=== PATIENT | male | born 1940 | race Caucasian/White ===

== ENCOUNTER → 2016-07-30 | Outpatient (CLI) | payer OTHER ==
--- NOTE | 2016-08-02 11:57 | CT ---
CT Scan of the Abdomen and Pelvis (Without IV Contrast) Clinical Indications: Follow-up infrarenal abdominal aortic aneurysm repair. COMPARISON: March 01, 2016. His initial preprocedure scan is July 2013. Technique: No intravenous contrast was given. Multidetector helical CT imaging is performed from th e diaphragm to the symphysis pubis. Dose reduction techniques were utilized. Intravenous contrast was not given because of renal insufficiency that is chronic. His prior scans are also done without cont rast. Dose reduction measures were utilized. Findings: At the top of L4, the lobular appearance of the aneurysm sac currently measures 5.9 x 5.9 cm, decreased from previous 6.3 x 6.5 cm when measured at the same level. Sac calcification is seen. The aneurysm extends down to the right common iliac artery, at this point largest measuring 4.3 x 4.4 cm, decreased from the previous 4.7 x 4.2 cm. There is some remodeling of the shape taking place. [place] th of these findings indirectly suggest lack of endoleak, despite lack of intravenous contrast with t hese studies. Location of the top of the stent-graft is unchanged, at the juxtarenal region. There is no evidence f or limb kink. Noncontrasted evaluation of the rest of the abdomen and pelvis is stable. Patient has sigmoid diverti culosis, known. Lung bases are clear. Again noted is bladder wall thickening with mild surrounding inflammation. Patient has small amount o f gallstones. IMPRESSION: 1. Interval decrease in size of the infrarenal and left iliac aneurysm, indirectly indicating lack of endoleak that is significant. 2. No stent-graft migration. 3. Cholelithiasis and sigmoid diverticulosis. 4. Otherwise no change in noncontrasted evaluation of the abdomen and pelvis. Attention: This examination does not use radiographic contrast, and as such, provides only a limite d evaluation of the abdomen, pelvis, and retroperitoneum. If there is further clinical suspicion for pathological conditions, a complete CT evaluation of the abdomen and pelvis utilizing intravenous, o ral, and rectal contrast should be considered.
== END ==
LOC: FIMAGING 13:57
PROVIDERS: ATTEND Radiology Diagnostic Radiology
DX: Z09 Encounter for follow-up examination after completed treatment for conditions other than malignant neoplasm (principal); I71.4 Abdominal aortic aneurysm, without rupture; K80.20 Calculus of gallbladder without cholecystitis without obstruction

== ENCOUNTER → 2016-10-09 | Outpatient (CLI) | payer OTHER | LOC: FIMAGING 13:22 | PROVIDERS: ATTEND Internal Medicine Nephrology | DX: N18.3 Chronic kidney disease, stage 3 (moderate) (principal); N28.1 Cyst of kidney, acquired ==

== ENCOUNTER 2017-01-03 07:39 | Emergency (ER) | payer OTHER ==
--- NOTE | 2017-01-03 07:56 | EDPHY ---
H & P Stated Complaint: High blood pressure at home and frequent urination -Stage 3 kidney failure HPI/ROS: CHIEF COMPLAINT: Polyuria, high blood pressure HISTORY OF PRESENT ILLNESS: The patient is a 76 y/o male with multiple comorbidities arriving with his complaining of polyuria and high blood pressure. He has a history that includes chronic kidney disease, urosepsis, BPH , CAD, and hypertension. He began feeling "woozy" last night and felt like he was unable to empty his bladder and has nearly constant urgency. He states this does not feel like prior UTIs. He has mild discomfort with palpation over his bladder when it is full. He denies fever, nausea, vomiting, diarrhea, chest pain , dyspnea, headache, syncope, abdominal pain. His states his blood pressure has been trending in the 150/100 range for the last month and they are working with his doctor to manage his Carvedilol. He normally takes 1/2 tablet 6.25mg BID. REVIEW OF SYSTEMS: Constitutional: No fever, no chills Eyes: No visual changes ENT: No sore throat Respiratory: No cough, no shortness of breath Cardiac: No chest pain Gastrointestinal: No nausea, no vomiting, no abdominal pain Genitourinary: see HPI Musculoskeletal: No leg pain or swelling Skin: No rash Neurological: No headache, no numbness, no weakness Psychiatric: No depression - Personal History Current Tetanus Diphtheria and Acellular Pertussis (TDAP): Yes Tetanus Vaccine Date: 2011 - Medical/Surgical History PMH: PMH includes: 1. Severe urosepsis 2. Acute on chronic hypoxic respiratory failure 3. Chronic kidney disease with baseline creatinine 1.8-2 4. Chronic heart failure 5. AAA status post stenting 6. 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 Chronic back pain with continuous narcotic dependency 8. COPD 9. Hypertension 10. Dyslipidemia 11. Paroxysmal atrial fibrillation in the setting of CABG 12. CAD status post CABG x4 in 2013 13. BPH 14. Pulmonary embolism Feb 2016 Prior medical records reviewed including admission 03/09/16 for chest pain and PE. Hx Asthma: No Hx Chronic Respiratory Disease: Yes Hx Diabetes: No Hx Cardiac Disease: Yes Hx Renal Disease: Yes Hx Cirrhosis: No Hx Alcoholism: No Hx HIV/AIDS: No Hx Splenectomy or Spleen Trauma: No Other PMH: CAD, CABG 4 vessel, [place] (1978), HTN, PVD, AAA (descending, repaired), COPD, BPH, renal stricture;CRI, dyslipidemia;Lt hip repl thrombocytopenia, anemia, arthritis, L hip surgery - Social History Smoking Status: Former smoker Additional Social History: Former smoker. 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 - Physical Exam Exam: General Appearance: Alert, appears fatigued, no distress Eyes: Pupils equal and round, no conjunctival pallor or injection ENT, Mouth: Mucous membranes moist Neck: Normal inspection Respiratory: Lungs are clear to auscultation Cardiovascular: Regular rate and rhythm Gastrointestinal: Abdomen is soft and non- tender Neurological: A&O, nonfocal, normal gait Skin: Warm and dry, no rash Extremities: Nontender Psychiatric: Mood and affect normal Constitutional: Initial Vital Signs Temperature (C) 36.6 C 01/03/17 07:40 Heart Rate 83 01/03/17 07:40 Respiratory Rate 20 01/03/17 07:40 Blood Pressure 143/92 H 01/03/17 07:40 O2 Sat (%) 91 L 01/03/17 07:40 O2 Delivery Mode Nasal Cannula O2 (L/minute) 5 Allergies/Adverse Reactions: lorazepam Allergy (Severe, Verified 03/09/16 17:03) Other-Enter Comments coffee Allergy (Uncoded 03/09/16 17:03) pt doesnt like garlic Allergy (Uncoded 03/09/16 17:03) pt doesnt like green peppers Allergy (Uncoded 03/09/16 17:03) pt doesnt like onions Allergy (Uncoded 03/09/16 17:03) red peppers Allergy (Uncoded 03/09/16 17:03) Home Medications: Medication Instructions Recorded Acetaminophen/ASA/Caffeine 1 each PO QID PRN 04/20/13 [Excedrin Tablet (*)] Atorvastatin Calcium [Lipitor 40 40 mg PO HS 04/20/13 mg (*)] Cyanocobalamin [Vitamin B12 (*)] 1,000 mcg PO HS 07/09/13 Cabergoline [Dostinex (*)] 0.25 mg PO SUWE@21 10/09/15 Carvedilol [Coreg (*)] 6.25 mg PO BIDMEAL 10/09/15 oxyCODONE CR [Oxycontin] 10 mg PO Q8@00,08,16 10/09/15 Aspirin [Aspirin 81mg (*)] 81 mg PO DAILY 02/27/16 Cholecalciferol Vit D3 [Vitamin D3 2,000 units PO DAILY 02/27/16 2000 units tab (OTC)] Diclofenac Sodium 1% [Voltaren Gel 1 pauly TP BID 02/27/16 (*)] oxyCODONE IR [Oxycodone Ir (*)] 15 mg PO Q8@04,12,20 02/27/16 Acetaminophen [Tylenol 325mg (*)] 650 mg PO Q6 PRN 03/09/16 Ciprofloxacin [Cipro] 500 mg PO BID 03/09/16 Furosemide [Lasix 40 MG (*)] 40 mg PO BIDDIUR 03/09/16 Nitroglycerin [Nitrostat 0.4 mg 0.4 mg SL Q5M PRN 03/09/16 (*)] Potassium Cl [Klor-Con 20 meq (*)] 20 meq PO BID 03/09/16 oxyCODONE IR [Oxycodone Ir (*)] 10 mg PO Q4H PRN 03/09/16 Apixaban [Eliquis] 10 mg PO BID #60 tab 03/14/16 Ciprofloxacin [Cipro] 500 mg PO BID #28 tab 01/03/17 Medical Decision Making ED Course/Re-evaluation: This is a 76 y/o male with multiple diagnoses including kidney disease, BPH, and hypertension, who presents with a 12-hour history of polyuria and urinary urgency. His is also concerned his blood pressure has been trending around 150/100 for the last month. He appears fatigued, but his exam is otherwise unremarkable. His BP is 143/92 here. Plan for IV, labs including CBC, CHEM, and UA. He has not taken his medication yet this morning, so we will administer 6.25mg PO Carvedilol. UA indicates UTI. Urine cx sent. He does not meet SIRS criteria. I discussed these findings with the patient during reassessment. Pt is happy to go home and feels safe going home. concurs. He will be discharged on cipro with standard UTI instructions and recommendation to follow up with his PCP on Friday. Return precautions given. He is comfortable with this plan. Differential Diagnosis: Differential diagnosis includes though it is not limited to Kidney stone, pyelonephritis, sepsis, appendicitis, cholecystitis, diverticulitis, pyelonephritis, bowel perforation, small bowel obstruction. - Data Points Laboratory Results: Laboratory Results 01/03/17 08:25 01/03/17 08:25 01/03/17 01/03/17 01/03/17 08:25 08:25 08:20 WBC 10.25 10^3/uL H 10^3/uL (3.80-9.50) RBC 4.11 10^6/uL L 10^6/uL (4.40-6.38) Hgb 12.8 g/dL L g/dL (13.7-17.5) Hct 38.8 % L % (40.0-51.0) MCV 94.4 fL fL (81.5-99.8) MCH 31.1 pg pg (27.9-34.1) MCHC 33.0 g/dL g/dL (32.4-36.7) RDW 14.1 % % (11.5-15.2) Plt Count 72 10^3/uL L 10^3/uL (150-400) MPV 11.1 fL fL (8.7-11.7) Neut % (Auto) 81.1 % H % (39.3-74.2) Lymph % (Auto) 9.4 % L % (15.0-45.0) [place] % (Auto) 7.7 % % (4.5-13.0) Eos % (Auto) 0.8 % % (0.6-7.6) Baso % (Auto) 0.5 % % (0.3-1.7) Nucleat RBC Rel Count 0.0 % % (0.0-0.2) Absolute Neuts (auto) 8.32 10^3/uL H 10^3/uL (1.70-6.50) Absolute Lymphs (auto) 0.96 10^3/uL L 10^3/uL (1.00-3.00) Absolute Monos (auto) 0.79 10^3/uL 10^3/uL (0.30-0.80) Absolute Eos (auto) 0.08 10^3/uL 10^3/uL (0.03-0.40) Absolute Basos (auto) 0.05 10^3/uL 10^3/uL (0.02-0.10) Absolute Nucleated RBC 0.00 10^3/uL 10^3/uL (0-0.01) Immature Gran % 0.5 % % (0.0-1.1) Immature Gran # 0.05 10^3/uL 10^3/uL (0.00-0.10) Sodium 138 mEq/L mEq/L (134-144) Potassium 4.2 mEq/L mEq/L (3.5-5.2) Chloride 106 mEq/L mEq/L (97-110) Carbon Dioxide 19 mEq/l L mEq/l (22-31) Anion Gap 13 mEq/L mEq/L (8-16) BUN 40 mg/dL H mg/dL (7-23) Creatinine 2.4 mg/dL H mg/dL (0.7-1.3) Estimated GFR 26 Glucose 103 mg/dL H mg/dL (70-100) Calcium 9.1 mg/dL mg/dL (8.5-10.4) Urine Color YELLOW Urine Appearance MODERATELY TURBID Urine pH 6.0 (5.0-7.5) Ur Specific [place] 1.011 (1.002-1.030) Urine Protein 1+ H (NEGATIVE) Urine Ketones NEGATIVE (NEGATIVE) Urine Blood 1+ H (NEGATIVE) Urine Nitrate NEGATIVE (NEGATIVE) Urine Bilirubin NEGATIVE (NEGATIVE) Urine Urobilinogen NEGATIVE EU EU (0.2-1.0) Ur Leukocyte Esterase 3+ H (NEGATIVE) Urine RBC 25-50 /hpf H /hpf (0-3) Urine WBC 50-182 /hpf H /hpf (0-3) Ur Epithelial Cells TRACE /lpf /lpf (NONE-1+) Urine Bacteria 1+ /hpf H /hpf (NONE SEEN) Urine Glucose NEGATIVE (NEGATIVE) Medications Given: Discontinued Medications Carvedilol (Coreg) 6.25 mg PO EDNOW ONE Stop: 01/03/17 08:23 Last Admin: 01/03/17 08:55 Dose: 6.25 mg Ciprofloxacin (Cipro) 500 mg PO EDNOW ONE PRN Reason: Protocol Stop: 01/03/17 09:17 Last Admin: 01/03/17 09:24 Dose: 500 mg Departure - Departure Disposition: Home, Routine, Self-Care Clinical Impression: UTI (urinary tract infection) Qualifiers: Urinary tract infection type: site unspecified Hematuria presence: with hematuria Qualified Code(s): N39.0 - Urinary tract infection, site not specified Condition: Good Instructions: Ciprofloxacin (By mouth), Urinary Tract Infection in Men (ED) Additional Instructions: 1. Take Ciprofloxacin as prescribed for your UTI. Be sure to complete the entire prescription even if you feel better. 2. Use Tylenol as directed on the packaging as needed for fever or pain for the next few days. 3. Call Dr. Leggett today to make a follow up appointment for Friday. 4. Return to the ED for any worsening of condition including fever and severe pain. Referrals: Ashley Leggett MD [Primary Care Provider] - As per Instructions Prescriptions: Ciprofloxacin [Cipro] 500 mg PO BID #28 tab Report Scribed for: Carline Jaime Report Scribed by: Haylee Moreau Date of Report: 01/03/17 Time of Report: 08:13 Physician Review and Approval Statement: 01/03/17 08:13 Portions of this note were transcribed by a biomedical engineering technician. I personally performed a history, physical exam, medical decision making, and confirmed accuracy of information the transcribed note.
[2017-01-03] MEDS ORDERED: CARVEDILOL 6.25 MG TAB PO ONE (08:22)
[2017-01-03 08:40] LABS: COLOR YELLOW; LEUKOCYTE ESTERASE,URINE 3+ (NEGATIVE); NITRITE,URINE NEGATIVE (NEGATIVE)
[2017-01-03 08:47] LABS: % IMMATURE GRANULYOCYTES 0.5 % (0.0-1.1); ABSOLUTE IMMATURE GRANULOCYTES 0.05 10^3/uL (0.00-0.10); ADD DIFF? NO; ADD MORPH? NO; ADD SCAN? NO; ATYPICAL LYMPHOCYTE FLAG 0 (0-99); FRAGMENT RBC FLAG 0 (0-99); HEMATOCRIT 38.8 % (40.0-51.0); HEMOGLOBIN 12.8 g/dL (13.7-17.5); LEFT SHIFT FLG 20 (0-99); LIPEMIA HEMOLYSIS FLAG 80 (0-99); MEAN CELL HEMOGLOBIN 31.1 pg (27.9-34.1); MEAN CELL VOLUME 94.4 fL (81.5-99.8); MEAN PLATELET VOLUME 11.1 fL (8.7-11.7); PLATELET CLUMPS FLAG 0 (0-99); PLATELET COUNT 72 10^3/uL (150-400); RED BLOOD CELL COUNT 4.11 10^6/uL (4.40-6.38); RED CELL DISTRIBUTION WIDTH 14.1 % (11.5-15.2)
[2017-01-03 08:49] LABS: BACTERIA 1+ /hpf (NONE SEEN); RBC,URINE 25-50 /hpf (0-3); WBC,URINE 50-182 /hpf (0-3)
[2017-01-03 08:58] LABS: ANION GAP 13 mEq/L (8-16); CALCIUM 9.1 mg/dL (8.5-10.4); CARBON DIOXIDE 19 mEq/l (22-31); CHLORIDE 106 mEq/L (97-110); CREATININE 2.4 mg/dL (0.7-1.3); GLOMERULAR FILTRATION RATE 26; GLUCOSE 103 mg/dL (70-100); POTASSIUM 4.2 mEq/L (3.5-5.2); SODIUM 138 mEq/L (134-144)
[2017-01-03] MEDS ORDERED: CIPROFLOXACIN 500 MG TAB PO ONE (09:16)
[2017-01-03 09:38] VITALS: BP 162/88; PULSE 69; RESP 18; TEMP 98.4; O2SAT 92
== END 2017-01-03 09:37 | disposition home or self-care (01) ==
DX: N39.0 Urinary tract infection, site not specified (principal); B96.5 Pseudomonas (aeruginosa) (mallei) (pseudomallei) as the cause of diseases classified elsewhere; I12.9 Hypertensive chronic kidney disease with stage 1 through stage 4 chronic kidney disease, or unspecified chronic kidney disease; N18.9 Chronic kidney disease, unspecified; I25.810 Atherosclerosis of coronary artery bypass graft(s) without angina pectoris; I25.2 Old myocardial infarction; J44.9 Chronic obstructive pulmonary disease, unspecified; Z87.891 Personal history of nicotine dependence; Z79.82 Long term (current) use of aspirin

== ENCOUNTER 2017-06-12 04:36 | Observation (INO) | payer OTHER ==
--- NOTE | 2017-06-12 04:47 | CPEKG ---
Heart Rate: 71 RR Interval: 845 P-R Interval: 200 QRSD Interval: 98 QT Interval: 396 QTC Interval: 431 P [place]: 15 QRS [place]: -19 T Wave [place]: 64 EKG Severity - OTHERWISE NORMAL ECG - EKG Impression: SINUS RHYTHM EKG Impression: VENTRICULAR PREMATURE COMPLEX EKG Impression: BORDERLINE LEFT AXIS DEVIATION Electronically Signed By: Garth Vogel 12-Jun-2017 06:38:30
--- NOTE | 2017-06-12 04:52 | EDPHY ---
H & P Stated Complaint: c/o cp Time Seen by Provider: 06/12/17 04:38 HPI/ROS: Chief Complaint: Chest pain HPI: 68-year-old male with a history of coronary artery disease status post coronary artery bypass graft x4 is in 2013 followed by an aortic aneurysm repair in 2014. Patient has been having substernal chest pain since yesterday afternoon. Patient did not have any relief with nitroglycerin. Pain got worse this evening. At worst was a 7/10. He did get some fentanyl from EMS which brought it on 0 6 on 10. He did not have any associated shortness of breath. No fevers or chills. No cough. No nausea or vomiting. He also has a history of COPD and renal insufficiency. He wears 5 L of oxygen at all times. He is a 60 year smoking history. ROS: 10 point Review of Systems is negative except as noted in the HPI. PMH: Coronary artery disease, COPD, chronic pain, chronic kidney disease Social History: Former 60 year smoking history, no alcohol, no recreational drug use Physical Exam: Gen: Awake, Alert, No Distress HEENT: Nose: no rhinorrhea Eyes: PERRLA, EOMI Mouth: Moist mucosa Neck: Supple, no JVD Chest: nontender, lungs clear to auscultation Heart: S1, S2 normal, no murmur Abd: Soft, non-tender, no guarding Back: no CVA tenderness, no midline tenderness Ext: no edema, non-tender Skin: no rash Neuro: CN II-XII intact, Sensation grossly intact, Strength 5/5 in bilateral upper and lower extremities - Personal History Tetanus Vaccine Date: 2011 - Medical/Surgical History Hx Asthma: No Hx Chronic Respiratory Disease: Yes Hx Diabetes: No Hx Cardiac Disease: Yes Hx Renal Disease: Yes Hx Cirrhosis: No Hx Alcoholism: No Hx HIV/AIDS: No Hx Splenectomy or Spleen Trauma: No Other PMH: CAD, CABG 4 vessel, [place] (1978), HTN, PVD, AAA (descending, repaired), COPD, BPH, renal stricture;CRI, dyslipidemia;Lt hip repl thrombocytopenia, anemia, arthritis, L hip surgery - Social History Smoking Status: Former smoker Constitutional: Initial Vital Signs Temperature (C) 36.7 C 06/12/17 04:43 Heart Rate 68 06/12/17 04:43 Respiratory Rate 18 06/12/17 04:43 Blood Pressure 149/72 H 06/12/17 04:43 O2 Sat (%) 90 L 06/12/17 04:43 O2 Delivery Mode Nasal Cannula O2 (L/minute) 5 Allergies/Adverse Reactions: lorazepam Allergy (Severe, Verified 06/12/17 04:56) Other-Enter Comments coffee Allergy (Uncoded 06/12/17 04:56) pt doesnt like garlic Allergy (Uncoded 06/12/17 04:56) pt doesnt like green peppers Allergy (Uncoded 06/12/17 04:56) pt doesnt like onions Allergy (Uncoded 06/12/17 04:56) red peppers Allergy (Uncoded 06/12/17 04:56) Home Medications: Medication Instructions Recorded Acetaminophen/ASA/Caffeine 1 each PO QID PRN 04/20/13 [Excedrin Tablet (*)] Atorvastatin Calcium [Lipitor 40 40 mg PO HS 04/20/13 mg (*)] Cyanocobalamin [Vitamin B12 (*)] 1,000 mcg PO HS 07/09/13 Cabergoline [Dostinex (*)] 0.25 mg PO SUWE@21 10/09/15 Carvedilol [Coreg (*)] 6.25 mg PO BIDMEAL 10/09/15 oxyCODONE CR [Oxycontin] 10 mg PO Q8@00,,10/09/15 Aspirin [Aspirin 81mg (*)] 81 mg PO DAILY 02/27/16 Cholecalciferol Vit D3 [Vitamin D3 2,000 units PO DAILY 02/27/16 2000 units tab (OTC)] Diclofenac Sodium 1% [Voltaren Gel 1 pauly TP BID 02/27/16 (*)] oxyCODONE IR [Oxycodone Ir (*)] 15 mg PO Q8@04,12,20 02/27/16 Acetaminophen [Tylenol 325mg (*)] 650 mg PO Q6 PRN 03/09/16 Ciprofloxacin [Cipro] 500 mg PO BID 03/09/16 Furosemide [Lasix 40 MG (*)] 40 mg PO BIDDIUR 03/09/16 Nitroglycerin [Nitrostat 0.4 mg 0.4 mg SL Q5M PRN 03/09/16 (*)] Potassium Cl [Klor-Con 20 meq (*)] 20 meq PO BID 03/09/16 oxyCODONE IR [Oxycodone Ir (*)] 10 mg PO Q4H PRN 03/09/16 Apixaban [Eliquis] 10 mg PO BID #60 tab 03/14/16 Ciprofloxacin [Cipro] 500 mg PO BID #28 tab 01/03/17 Medical Decision Making - Diagnostics EKG Interpretation: ECG time 4:40 a.m.. This is sinus rhythm with a rate of 71, borderline left axis deviation, normal intervals, no acute ST or T-wave changes. There is a PVC. Imaging Results: Chest x-ray shows no acute findings compared to prior per my interpretation. Imaging: I viewed and interpreted images myself ED Course/Re-evaluation: 76-year-old male presenting with substernal chest pain since yesterday. He has history of coronary disease. Is assist slight elevation in his troponin. No acute findings in his ECG. Patient will need to be admitted for further evaluation. I have discussed with Dr. Hercules. - Data Points Laboratory Results: Laboratory Results 06/12/17 04:40 06/12/17 06/12/17 04:44 04:40 WBC Pending RBC Pending Hgb Pending Hct Pending MCV Pending MCH Pending MCHC Pending RDW Pending Plt Count Pending MPV Pending Neut % (Auto) Pending Lymph % (Auto) Pending [place] % (Auto) Pending Eos % (Auto) Pending Baso % (Auto) Pending Nucleat RBC Rel Count Pending Absolute Neuts (auto) Pending Absolute Lymphs (auto) Pending Absolute Monos (auto) Pending Absolute Eos (auto) Pending Absolute Basos (auto) Pending Absolute Nucleated RBC Pending Immature Gran % Pending Immature Gran # Pending Sodium 141 mEq/L mEq/L (134-144) Potassium 4.5 mEq/L mEq/L (3.5-5.2) Chloride 102 mEq/L mEq/L (97-110) Carbon Dioxide 24 mEq/l mEq/l (22-31) Anion Gap 15 mEq/L mEq/L (8-16) BUN 33 mg/dL H mg/dL (7-23) Creatinine 2.1 mg/dL H mg/dL (0.7-1.3) Estimated GFR 31 Glucose 104 mg/dL H mg/dL (70-100) Calcium 9.5 mg/dL mg/dL (8.5-10.4) Total Bilirubin 0.6 mg/dL mg/dL (0.1-1.4) AST 24 IU/L IU/L (17-59) ALT 36 IU/L IU/L (21-72) Alkaline Phosphatase 177 IU/L H IU/L (38-126) Troponin I 0.045 ng/mL H ng/mL (0.000-0.034) Total Protein 6.9 g/dL g/dL (6.3-8.2) Albumin 3.9 g/dL g/dL (3.5-5.0) Departure - Departure Disposition: [facility] Inpatient Acute Clinical Impression: Chest pain Condition: Fair Referrals: Patient,NotPresent [Unknown] - As per Instructions
[2017-06-12 05:16] LABS: ALANINE AMINOTRANSFERASE 36 IU/L (21-72); ALBUMIN 3.9 g/dL (3.5-5.0); ALKALINE PHOSPHATASE 177 IU/L (38-126); ANION GAP 15 mEq/L (8-16); ASPARTATE AMINOTRANSFERASE 24 IU/L (17-59); BILIRUBIN,TOTAL 0.6 mg/dL (0.1-1.4); CALCIUM 9.5 mg/dL (8.5-10.4); CARBON DIOXIDE 24 mEq/l (22-31); CHLORIDE 102 mEq/L (97-110); CREATININE 2.1 mg/dL (0.7-1.3); GLOMERULAR FILTRATION RATE 31; GLUCOSE 104 mg/dL (70-100); POTASSIUM 4.5 mEq/L (3.5-5.2); SODIUM 141 mEq/L (134-144); TOTAL PROTEIN 6.9 g/dL (6.3-8.2)
[2017-06-12 05:27] LABS: TROPONIN I 0.045 ng/mL (0.000-0.034)
[2017-06-12] MEDS ORDERED: ONDANSETRON DISINTEGRATING 4 MG TAB PO PRN (05:40)
[2017-06-12] MEDS ORDERED: ONDANSETRON 4 MG/2 ML VIAL IVP PRN (05:40)
[2017-06-12 05:46] LABS: % IMMATURE GRANULYOCYTES 0.9 % (0.0-1.1); ADD DIFF? NO; ADD MORPH? NO; ADD SCAN? NO; ATYPICAL LYMPHOCYTE FLAG 10 (0-99); FRAGMENT RBC FLAG 0 (0-99); HEMATOCRIT 43.5 % (40.0-51.0); HEMOGLOBIN 14.5 g/dL (13.7-17.5); LEFT SHIFT FLG 10 (0-99); LIPEMIA HEMOLYSIS FLAG 80 (0-99); MEAN CELL HEMOGLOBIN 31.3 pg (27.9-34.1); MEAN CELL HEMOGLOBIN CONCENTR. 33.3 g/dL (32.4-36.7); MEAN CELL VOLUME 93.8 fL (81.5-99.8); MEAN PLATELET VOLUME 10.6 fL (8.7-11.7); PLATELET CLUMPS FLAG 0 (0-99); PLATELET COUNT 115 10^3/uL (150-400); RED BLOOD CELL COUNT 4.64 10^6/uL (4.40-6.38); RED CELL DISTRIBUTION WIDTH 13.5 % (11.5-15.2)
[2017-06-12] MEDS ORDERED: oxyCODONE IR 5 MG TAB PO PRN (06:03)
--- NOTE | 2017-06-12 06:08 | PDGENHP ---
History and Physical - Chief Complaint Chest pain - History of Present Illness 76 yo M w/ CAD s/p CABG in 2014, AF, and chronic pain presents with chest pain. Patient first noticed left sided chest pain about 2 days ago. He thinks it may have started after some dry heaving, which he does not know why he had. The pain is left sided, dull pressure, 5/10, without radiation or associated symptoms. The pain does not vary with activity and is fairly constant. The pain is aggravated when I push on the spot of the pain. Nitroglycerin in the ED had no effect on the pain. Patient denies fevers, chills, diarrhea, shortness of breath, and palpitations. History Information - Allergies/Home Medication List Allergies/Adverse Reactions: lorazepam Allergy (Severe, Verified 06/12/17 04:56) Other-Enter Comments coffee Allergy (Uncoded 06/12/17 04:56) pt doesnt like garlic Allergy (Uncoded 06/12/17 04:56) pt doesnt like green peppers Allergy (Uncoded 06/12/17 04:56) pt doesnt like onions Allergy (Uncoded 06/12/17 04:56) red peppers Allergy (Uncoded 06/12/17 04:56) Home Medications: Acetaminophen/ASA/Caffeine [Excedrin Tablet (*)] 1 each PO QID PRN 04/20/13 [ Last Taken 10/24/13 20:00] Atorvastatin Calcium [Lipitor 40 mg (*)] 40 mg PO HS 04/20/13 [Last Taken ] Cyanocobalamin [Vitamin B12 (*)] 1,000 mcg PO HS 07/09/13 [Last Taken 03/08/16] Cabergoline [Dostinex (*)] 0.25 mg PO SUWE@21 10/09/15 [Last Taken 03/06/16] Carvedilol [Coreg (*)] 6.25 mg PO BIDMEAL 10/09/15 [Last Taken 03/09/16] oxyCODONE CR [Oxycontin] 10 mg PO Q8@00,,10/09/15 [Last Taken 03/09/16 08: 00] Aspirin [Aspirin 81mg (*)] 81 mg PO DAILY 02/27/16 [Last Taken 03/09/16] Cholecalciferol Vit D3 [Vitamin D3 2000 units tab (OTC)] 2,000 units PO DAILY [Last Taken 03/09/16] Diclofenac Sodium 1% [Voltaren Gel (*)] 1 pauly TP BID 02/27/16 [Last Taken 06:00] oxyCODONE IR [Oxycodone Ir (*)] 15 mg PO Q8@04,12,20 02/27/16 [Last Taken 12:00] Acetaminophen [Tylenol 325mg (*)] 650 mg PO Q6 PRN 03/09/16 [Last Taken Unknown] Ciprofloxacin [Cipro] 500 mg PO BID 03/09/16 [Last Taken 03/09/16 08:00] Furosemide [Lasix 40 MG (*)] 40 mg PO BIDDIUR 03/09/16 [Last Taken 03/09/16] Nitroglycerin [Nitrostat 0.4 mg (*)] 0.4 mg SL Q5M PRN 03/09/16 [Last Taken 15:07] Potassium Cl [Klor-Con 20 meq (*)] 20 meq PO BID 03/09/16 [Last Taken 03/09/16] oxyCODONE IR [Oxycodone Ir (*)] 10 mg PO Q4H PRN 03/09/16 [Last Taken 03/09/16 13:31] I have personally reviewed and updated: family history, medical history - Past Medical History atrial fibrillation, coronary artery disease - Surgical History Reports: coronary bypass surgery - Family History Positive for: cancer - Social History Smoking Status: Former smoker Review of Systems Review of Systems: ROS: 10pt was reviewed & negative except for what was stated in HPI & below Physical Exam Physical Exam: Temp Pulse Resp BP Pulse Ox 36.7 C 65 15 114/77 93 06/12/17 04:43 06/12/17 05:55 06/12/17 05:55 06/12/17 05:55 06/12/17 05:55 O2 (L/minute) 5 Constitutional: appears nourished, uncomfortable Eyes: PERRL, EOMI Ears, Nose, Mouth, Throat: moist mucous membranes, no oral mucosal ulcers Cardiovascular: regular rate and rhythym, systolic murmur, other (Chest pain aggravated by palpation of left chest) Respiratory: no respiratory distress, clear to auscultation Gastrointestinal: normoactive bowel sounds, soft, non-tender abdomen Skin: warm, normal color Musculoskeletal: full muscle strength, no joint effusions Neurologic: AAOx3, CN II-XII Intact Psychiatric: interacting appropriately, not anxious Lab Data & Imaging Review 06/12/17 04:44 06/12/17 04:40 WBC 11.57 10^3/uL (3.80-9.50) H 06/12/17 04:44 RBC 4.64 10^6/uL (4.40-6.38) 06/12/17 04:44 Hgb 14.5 g/dL (13.7-17.5) 06/12/17 04:44 Hct 43.5 % (40.0-51.0) 06/12/17 04:44 MCV 93.8 fL (81.5-99.8) 06/12/17 04:44 MCH 31.3 pg (27.9-34.1) 06/12/17 04:44 MCHC 33.3 g/dL (32.4-36.7) 06/12/17 04:44 RDW 13.5 % (11.5-15.2) 06/12/17 04:44 Plt Count 115 10^3/uL (150-400) L 06/12/17 04:44 MPV 10.6 fL (8.7-11.7) 06/12/17 04:44 Neut % (Auto) 79.9 % (39.3-74.2) H 06/12/17 04:44 Lymph % (Auto) 10.9 % (15.0-45.0) L 06/12/17 04:44 Blaine % (Auto) 7.6 % (4.5-13.0) 06/12/17 04:44 Eos % (Auto) 0.4 % (0.6-7.6) L 06/12/17 04:44 Baso % (Auto) 0.3 % (0.3-1.7) 06/12/17 04:44 Nucleat RBC Rel Count 0.0 % (0.0-0.2) 06/12/17 04:44 Absolute Neuts (auto) 9.24 10^3/uL (1.70-6.50) H 06/12/17 04:44 Absolute Lymphs (auto) 1.26 10^3/uL (1.00-3.00) 06/12/17 04:44 Absolute Monos (auto) 0.88 10^3/uL (0.30-0.80) H 06/12/17 04:44 Absolute Eos (auto) 0.05 10^3/uL (0.03-0.40) 06/12/17 04:44 Absolute Basos (auto) 0.04 10^3/uL (0.02-0.10) 06/12/17 04:44 Absolute Nucleated RBC 0.00 10^3/uL (0-0.01) 06/12/17 04:44 Immature Gran % 0.9 % (0.0-1.1) 06/12/17 04:44 Immature Gran # 0.10 10^3/uL (0.00-0.10) 06/12/17 04:44 Sodium 141 mEq/L (134-144) 06/12/17 04:40 Potassium 4.5 mEq/L (3.5-5.2) 06/12/17 04:40 Chloride 102 mEq/L (97-110) 06/12/17 04:40 Carbon Dioxide 24 mEq/l (22-31) 06/12/17 04:40 Anion Gap 15 mEq/L (8-16) 06/12/17 04:40 BUN 33 mg/dL (7-23) H 06/12/17 04:40 Creatinine 2.1 mg/dL (0.7-1.3) H 06/12/17 04:40 Estimated GFR 31 06/12/17 04:40 Glucose 104 mg/dL (70-100) H 06/12/17 04:40 Calcium 9.5 mg/dL (8.5-10.4) 06/12/17 04:40 Total Bilirubin 0.6 mg/dL (0.1-1.4) 06/12/17 04:40 AST 24 IU/L (17-59) 06/12/17 04:40 ALT 36 IU/L (21-72) 06/12/17 04:40 Alkaline Phosphatase 177 IU/L (38-126) H 06/12/17 04:40 Troponin I 0.045 ng/mL (0.000-0.034) H 06/12/17 04:40 Total Protein 6.9 g/dL (6.3-8.2) 06/12/17 04:40 Albumin 3.9 g/dL (3.5-5.0) 06/12/17 04:40 Visualized and Interpreted Chest x-ray results: Yes Chest X-Ray results: no infiltrate EKG Interpretation: Positive for: normal sinsus rhythm, other (Poor R wave progression) Assessment & Plan Assessment: 76 yo M w/ hx of CAD s/p CABG presents with atypical chest pain. Plan: 1. Atypical chest pain - Present for several days without association to exertion, reproducible on exam, and unaffected by NTG. ECG without signs of ischemia despite ongoing pain and troponin indeterminate in the setting of CKD. This does not seem consistent with cardiac chest pain, more likely MSK from dry heaving, but noting history reasonable to admit for observation and serial enzymes. - Monitor on telemetry, trend cardiac enzymes - Will not order stress test at this time noting low suspicion for cardiac etiology and ongoing pain - Consider cardiology consult noting complex history if worrisome features arise during observation 2. Hx CAD s/p CABG in 2013 - On ASA, statin, and BB as outpatient. Acute management as above. 3. Hx AF - On BB, no longer on anticoagulation. Sinus rhythm on admission. 4. Hx of presumed PE - No longer on anticoagulation. 5. OA w/ chronic pain - On chronic opiate therapy, needs med reconciliation performed. 6. CKD - Stage 3, at baseline. Diet - NPO for now pending additional cardiac enzymes Code - Full Ppx - SCDs Dispo - Admit to observation status
--- NOTE | 2017-06-12 09:47 | ASMTCASEMG ---
Living Arrangements What is your living Answers: With Spouse arrangement? Who do you live with? Type Of Residence What kind of residence do Answers: House you live in? Discharge Plan Comments Coordination Status Comments Notes: Patient is a 76yo male who was admitted for atypical chest pain. Patient has a hx of CAD s/p CABG in 2013. Patient admitted observation status. PT ordered. D/C needs TBD. CM will follow. Date Signed: 06/12/2017 09:47 AM Electronically Signed By:Deya Hernández LCSW
[2017-06-12] MEDS: DOCUSATE SODIUM 100 MG CAP PO SCH (12:26)
[2017-06-12] MEDS: oxyCODONE IR 5 MG TAB PO SCH ×2 (12:26→15:43)
[2017-06-12] MEDS: CHOLECALCIFEROL VIT D3 1,000 UNITS TAB PO SCH (12:26)
[2017-06-12] MEDS ORDERED: oxyCODONE IR 15 MG TAB PO SCH (13:00)
--- NOTE | 2017-06-12 15:09 | HOSPPROG ---
Hospitalist Progress Note Assessment/Plan: cp cpncerning for recurrent PE vq and LE ultrasound Objective: Vital Signs Temp Pulse Resp BP Pulse Ox 37.0 C 66 13 145/67 H 96 06/12/17 08:00 06/12/17 12:00 06/12/17 12:00 06/12/17 12:00 06/12/17 12:00 06/11/17 06/12/17 06/13/17 05:59 05:59 05:59 Output Total 860 Balance -860 ICD10 Worksheet Patient Problems: Problems Problem Status Onset Chest pain Acute Acute on chronic renal insufficiency Acute Acute renal failure syndrome Acute Anemia Acute Atrial fibrillation Acute Coronary artery arteriosclerosis Acute Elevated d-dimer Acute Left main coronary artery disease Acute Old inferior wall myocardial infarction Acute Osteoarthritis of left hip Acute Shock, cardiogenic Acute Unstable angina Acute Urinary tract infection Acute
[2017-06-12] MEDS: ATORVASTATIN CALCIUM 40 MG TAB PO SCH (15:43)
[2017-06-12] MEDS: ACETAMINOPHEN 325 MG TAB PO PRN ×2 (18:28→21:03)
[2017-06-12] MEDS: oxyCODONE CR 15 MG TAB PO SCH (18:28)
[2017-06-12] MEDS: ASCORBIC ACID 500 MG TAB PO SCH (21:08)
[2017-06-12] MEDS: METHENAMINE HIPP 1 GM TAB PO SCH (21:08)
[2017-06-12] MEDS: CARVEDILOL 6.25 MG TAB PO SCH (21:08)
[2017-06-12] MEDS ORDERED: CYANO/VITAMIN B12 1000 MCG TAB PO SCH (22:00)
[2017-06-12] MEDS ORDERED: TAMSULOSIN HCL 0.4 MG CAP PO SCH (22:00)
[2017-06-13] MEDS: oxyCODONE IR 5 MG TAB PO SCH ×3 (07:31→16:24)
[2017-06-13] MEDS: METHENAMINE HIPP 1 GM TAB PO SCH (07:31)
[2017-06-13] MEDS: ASCORBIC ACID 500 MG TAB PO SCH (07:32)
[2017-06-13] MEDS: CARVEDILOL 6.25 MG TAB PO SCH (07:32)
[2017-06-13] MEDS ORDERED: Herbals/Supplements -Info Only PO SCH (09:00)
[2017-06-13] MEDS ORDERED: MULTIVITAMINS 1 EACH TAB PO SCH (10:00)
[2017-06-13] MEDS ORDERED: ASPIRIN 81 MG CHEWABLE TAB PO SCH (10:00)
[2017-06-13] MEDS: oxyCODONE CR 15 MG TAB PO SCH (10:21)
[2017-06-13 12:10] VITALS: TEMP 97.9; O2SAT 97
[2017-06-13] MEDS: CHOLECALCIFEROL VIT D3 1,000 UNITS TAB PO SCH (14:23)
[2017-06-13] MEDS: DOCUSATE SODIUM 100 MG CAP PO SCH (14:23)
--- NOTE | 2017-06-13 15:49 | ASMTCMCOM ---
CM Note CM Note Notes: Patient may have underlying COPD.PT ordered for patient but eval not available yet. Continue to monitor for D/C needs. CM will follow. Date Signed: 06/13/2017 03:48 PM Electronically Signed By:Deya Hernández LCSW
--- NOTE | 2017-06-13 16:13 | HOSPPROG ---
Hospitalist Progress Note Assessment/Plan: 76 yo M w cad here w cp, weakness cp: VQ indet w neg le u/s i believe this to be a neg eval weakness: declines PT dispo: home today > 30 minutes see dc summary Subjective: VQ indet- d/w dr mustafa Objective: Vital Signs Temp Pulse Resp BP Pulse Ox 36.6 C 66 15 118/61 97 06/13/17 12:05 06/13/17 12:05 06/13/17 12:05 06/13/17 12:05 06/13/17 12:05 06/12/17 06/13/17 06/14/17 05:59 05:59 05:59 Intake Total 500 Output Total 1040 Balance -540 - Physical Exam Constitutional: no apparent distress, appears nourished, chronically ill appearing Eyes: PERRL, anicteric sclera Ears, Nose, Mouth, Throat: moist mucous membranes, hearing normal Cardiovascular: regular rate and rhythym, no murmur, rub, or gallop Respiratory: no respiratory distress, no rales or rhonchi Gastrointestinal: normoactive bowel sounds, soft, non-tender abdomen Genitourinary: No gleason in urethra Skin: warm, normal color Musculoskeletal: full muscle strength Neurologic: AAOx3 ICD10 Worksheet Patient Problems: Problems Problem Status Onset Chest pain Acute Acute on chronic renal insufficiency Acute Acute renal failure syndrome Acute Anemia Acute Atrial fibrillation Acute Coronary artery arteriosclerosis Acute Elevated d-dimer Acute Left main coronary artery disease Acute Old inferior wall myocardial infarction Acute Osteoarthritis of left hip Acute Shock, cardiogenic Acute Unstable angina Acute Urinary tract infection Acute
[2017-06-13] MEDS: ATORVASTATIN CALCIUM 40 MG TAB PO SCH (16:23)
[2017-06-13 16:24] VITALS: BP 135/78; PULSE 76; RESP 12
--- NOTE | 2017-06-13 19:42 | GDS ---
[f rep st] DISCHARGE SUMMARY DISCHARGE DIAGNOSES: 1. Generalized weakness. 2. Chronic hypoxemic respiratory failure. 3. Chest pain of uncertain etiology. 4. Monitor troponin bump. 5. Atrial fibrillation. 6. Coronary artery disease. HOSPITAL COURSE: The patient presented with chest pain. He had an EKG that was nonischemic. Chest x-ray was unremarkable. He has chronic kidney disease, so the CTA could not be performed. He has a history of what was felt to be high probability V/Q scan and was treated. His V/Q scan here was felt to be somewhat similar, but indeterminate probability his hypoxia was at its baseline. He had no JV D. He had no lower extremity DVTs. It was considered a negative evaluation. The patient had ongoin g generalized weakness. He declined PT both here and as an outpatient. His renal function is at [facility]. He did have a troponin to 0.045 in the setting of a creatinine of 2 that trended down to 0.01 8. I discussed this with Dr. Rust, who felt further workup was not indicated. I offer the patie nt to stay for evaluation of weakness and physical therapy, and he declined. He is, therefore, disch arged home. /[id number]/MODL
[2017-06-15] MEDS ORDERED: CABERGOLINE 0.5 MG TAB PO SCH (22:00)
== END 2017-06-13 16:58 | disposition home or self-care (01) ==
LOC: EDUNIT# → F2N 06:21
PROVIDERS: ADMIT Student in an Organized Health Care Education/Training Program; ATTEND Student in an Organized Health Care Education/Training Program
DX: R53.1 Weakness (principal); J96.11 Chronic respiratory failure with hypoxia; R07.9 Chest pain, unspecified; R79.89 Other specified abnormal findings of blood chemistry; I48.91 Unspecified atrial fibrillation; I25.10 Atherosclerotic heart disease of native coronary artery without angina pectoris; Z87.891 Personal history of nicotine dependence
CPT/HCPCS: 71020; 78580; 93005; 93970; 99285; A9540; G0378; J2405

== ENCOUNTER 2017-06-21 22:05 | Inpatient (IN) | payer OTHER ==
[2017-06-21] MEDS ORDERED: IPRATROPIUM/ALBUTEROL 3 ML DEYVIAL IH ONE (22:14)
--- NOTE | 2017-06-21 22:19 | CPEKG ---
Heart Rate: 103 RR Interval: 583 P-R Interval: 200 QRSD Interval: 98 QT Interval: 324 QTC Interval: 424 P Zapata: 26 QRS Zapata: -30 T Wave Zapata: 64 EKG Severity - OTHERWISE NORMAL ECG - EKG Impression: SINUS TACHYCARDIA EKG Impression: LEFT AXIS DEVIATION Electronically Signed By: Phillip Bradshaw 23-Jun-2017 08:45:37
[2017-06-21 22:22] LABS: % IMMATURE GRANULYOCYTES 0.8 % (0.0-1.1); ABSOLUTE IMMATURE GRANULOCYTES 0.06 10^3/uL (0.00-0.10); ADD DIFF? NO; ADD MORPH? NO; ADD SCAN? NO; ATYPICAL LYMPHOCYTE FLAG 20 (0-99); FRAGMENT RBC FLAG 0 (0-99); HEMATOCRIT 40.3 % (40.0-51.0); HEMOGLOBIN 13.3 g/dL (13.7-17.5); LEFT SHIFT FLG 0 (0-99); LIPEMIA HEMOLYSIS FLAG 80 (0-99); MEAN CELL VOLUME 93.9 fL (81.5-99.8); MEAN PLATELET VOLUME 9.6 fL (8.7-11.7); PLATELET CLUMPS FLAG 20 (0-99); PLATELET COUNT 145 10^3/uL (150-400); RED BLOOD CELL COUNT 4.29 10^6/uL (4.40-6.38); RED CELL DISTRIBUTION WIDTH 13.3 % (11.5-15.2)
--- NOTE | 2017-06-21 22:22 | EDPHY ---
H & P Stated Complaint: AMS HPI/ROS: HPI CHIEF COMPLAINT: Altered mental status hypoxia, respiratory distress HISTORY OF PRESENT ILLNESS: This patient is a 76-year-old male, significant past medical history for multiple chronic medical problems including coronary artery disease, AFib, chronic kidney disease, status post CABG with recent hospitalization for generalized weakness patient presents to the emergency room by EMS with generalized weakness and shortness of breath and hypoxia. EMS reports that miley was called for lift assist by his . The patient was going to bed this evening and fell forward onto his abdomen and chest and could not get up. His could not lift him. When miley arrived they found his oxygen saturation to be 60%. He appeared confused and globally weak. Upon arrival to the emergency room the patient arrives with CPAP on by EMS, he is tachypneic in the 30s. His O2 sat is 98% on CPAP 10 L. he does not answer many of my questions he says yes to mostly everything he tells me his pain throughout his entire body. at bedside reports that he has been weak at home and has not been able to ambulate well. Past Medical History: COPD on 4 L nasal cannula at baseline, chronic kidney disease, AFib, coronary artery disease, deconditioning Past Surgical History: CABG Social History: Denies daily use drugs alcohol tobacco products. Family History: Noncontributory. ROS REVIEW OF SYSTEMS: A comprehensive 10 point review of systems is otherwise negative aside from elements mentioned in the history of present illness. Exam Constitutional appears nontoxic, mild respiratory distress triage nursing summary reviewed, vital signs reviewed, awake/alert. Febrile 380. Tachycardia. And hypoxic. Eyes normal conjunctivae and sclera, EOMI, PERRLA. HENT normal inspection, atraumatic, dry mucous membranes, no epistaxis, neck supple/ no meningismus, no raccoon eyes. Respiratory mild respiratory distress, diminished breath sounds bilaterally, little air movement. Cardiovascular rate normal, regular rhythm, no murmur, no edema, distal pulses normal. Gastrointestinal soft, non-tender, no rebound, no guarding, normal bowel sounds, no distension, no pulsatile mass. Genitourinary no CVA tenderness. Musculoskeletal no midline vertebral tenderness, full range of motion, no calf swelling, no tenderness of extremities, no meningismus, good pulses, neurovascularly intact. Skin pink, warm, & dry, no rash, skin atraumatic. Neurologic confused, alert and orient x2, answers yes to most my questions, moves all 4 extremities equally, motor intact, sensory intact, CN II-XII intact , normal cerebellar, normal vision, normal speech. Psychiatric normal mood/affect. Heme/Lymph/Immune no lymphadenopathy. Differential Diagnosis: Includes but is not limited to in a particular order COPD exacerbation, acute hypoxia, pneumothorax, acute coronary syndrome, pneumonia, CHF, pulmonary embolism, sepsis, electrolyte disturbance, dehydration , renal failure, narcotic overdose Medical Decision Making: Plan for this patient he was greeted immediately in the ER room 2, he has been placed on full c.o.d. biller, IV has been established will obtain blood cultures lactic acid, DuoNeb breathing treatment, EKG to acute coronary syndrome, check troponin, chest x-ray, close monitoring of his respiratory status. May need to give Narcan. Re-evaluation: EKG interpretation by me on record in [email or web address] system. Impression time of EKG 2217 this is sinus tachycardia rate of 103. When I compare this EKG to his old EKG dated 06/12/2017 similar morphology. 2314: Spoke with the hospitalist service Dr. Plasencia who agrees to admit this patient. Reason for admission hypoxia. Currently this time is hemodynamically stable he is requiring 6 L nasal cannula to keep his oxygen saturation at 90 91%. Was unable to get a CT scan of his head however clinically I do not think he absolutely needs this. He was unable to lay flat CT due to the shortness of breath and getting more hypoxic. Patient x-ray reviewed does show cardiomegaly and some mild pulmonary edema also additionally has an elevated creatinine. Additionally there is some haziness in his bilateral lobes the may be concerning for pneumonia. It is possible he has a pulmonary embolism however I cannot do a CT angiogram he just recent V/Q scan. Plan will be for admission for hypoxia, generalized weakness, most likely COPD exacerbation, also possibly mild CHF. Admit to SDU. I have updated the at bedside. 1200: I did go re-evaluate the patient the patient is tachycardic to 120. Blood pressure stable. He is febrile to 38 degrees. Will give Tylenol for fever. He has received broad-spectrum antibiotics IV vancomycin IV Zosyn. I am concerned that he may have pneumonia or bacteremia. I initially ordered him Lasix as he was hypoxic and thought maybe he had some staff which she may still do however he has no significant peripheral edema. I will give him a fluid bolus at 250 cc and re-evaluate as he is tachycardic febrile and is most likely septic. Additionally I will admitted to step-down unit. CT of the head without contrast shows no intracranial bleed or traumatic injury. Called to me by Dr. Vitale. Source: Patient, EMS - Personal History Current Tetanus/Diphtheria Vaccine: Yes Current Tetanus Diphtheria and Acellular Pertussis (TDAP): Yes Tetanus Vaccine Date: 2011 - Medical/Surgical History Hx Asthma: No Hx Chronic Respiratory Disease: Yes Hx Diabetes: No Hx Cardiac Disease: Yes Hx Renal Disease: Yes Hx Cirrhosis: No Hx Alcoholism: No Hx HIV/AIDS: No Hx Splenectomy or Spleen Trauma: No Other PMH: CAD, CABG 4 vessel, OR (1978), HTN, PVD, AAA (descending, repaired), COPD, BPH, renal stricture;CRI, dyslipidemia;Lt hip repl thrombocytopenia, anemia, arthritis, L hip surgery - Social History Smoking Status: Former smoker Constitutional: Initial Vital Signs Temperature (C) 38.0 C 06/21/17 22:12 Heart Rate 110 H 06/21/17 22:12 Respiratory Rate 22 H 06/21/17 22:12 Blood Pressure 169/108 H 06/21/17 22:12 O2 Sat (%) 94 06/21/17 22:12 O2 Delivery Mode Nasal Cannula,Humidified O2 (L/minute) 5 Allergies/Adverse Reactions: lorazepam Allergy (Severe, Verified 06/21/17 22:29) Other-Enter Comments coffee Allergy (Uncoded 06/21/17 22:29) pt doesnt like garlic Allergy (Uncoded 06/21/17 22:29) pt doesnt like green peppers Allergy (Uncoded 06/21/17 22:29) pt doesnt like onions Allergy (Uncoded 06/21/17 22:29) red peppers Allergy (Uncoded 06/21/17 22:29) Home Medications: Medication Instructions Recorded Ascorbic Acid [Vitamin C 500 mg 1,000 mg PO BID@07,19 06/12/17 (*)] Aspirin [Aspirin 81mg (*)] 81 mg PO DAILY@10 06/12/17 Atorvastatin Calcium [Lipitor 40 40 mg PO DAILY@16 06/12/17 mg (*)] Cabergoline [Dostinex (*)] 0.25 mg PO SUWE@06/12/17 Carvedilol [Coreg (*)] 3.125 mg PO BID@,06/12/17 Cholecalciferol Vit D3 [Vitamin D3 1,000 units PO DAILY@06/12/17 (*)] Cyanocobalamin [Vitamin B12 (*)] 1,000 mcg PO DAILY@06/12/17 Herbals/Supplements -Info Only 1 ea PO DAILY 06/12/17 Methenamine Corey [Hiprex 1 gm (*)] 1 gm PO BID@,06/12/17 Multivitamins [Multivitamin (*)] 1 each PO DAILY@06/12/17 Tamsulosin HCl [Flomax 0.4 MG (*)] 0.8 mg PO DAILY@06/12/17 oxyCODONE CR [Oxycontin] 15 mg PO BID@,06/12/17 oxyCODONE IR [Oxycodone Ir (*)] 15 mg PO TID@,,,06/12/17 Furosemide [Lasix 40 MG (*)] 40 mg PO DAILY PRN 06/22/17 Naldemedine Tosylate [Symproic] 0.2 mg PO DAILY@06/22/17 Nitroglycerin [Nitrostat] 0.3 mg SL Q5M PRN 06/22/17 Medical Decision Making - Diagnostics Imaging Results: Imaging Impressions Head CT 06/22/17 00:53 Impression: Stable noncontrast CT of the head. The study was performed as an emergency on-call case and discussed by telephone with Dr. Wilberto Rod at 1:20 AM hrs. The final interpretation is concordant with the original communication. - Data Points Laboratory Results: Laboratory Results 06/22/17 05:48 06/22/17 05:48 Microbiology Results: MICROBIOLOGY 06/22/17 00:15 Nasal, Sinus - Swab Respiratory Panel (PCR) - Final Influenza Virus Type A H3 Medications Given: Acetaminophen (Tylenol) 650 mg PO Q4HRS PRN PRN Reason: Pain, Mild/Fever, Can Take PO Stop: 12/18/17 23:16 Last Admin: 06/22/17 12:29 Dose: 325 mg Ascorbic Acid (Vitamin C) 1,000 mg PO BID@ [facility] Stop: 12/19/17 18:59 Last Admin: 06/22/17 19:17 Dose: 1,000 mg Atorvastatin Calcium (Lipitor) 40 mg PO DAILY@16 [facility] Stop: 12/19/17 15:59 Last Admin: 06/22/17 17:05 Dose: 40 mg Carvedilol (Coreg) 3.125 mg PO BID@ [facility] Stop: 12/19/17 18:59 Last Admin: 06/22/17 19:18 Dose: 3.125 mg Cholecalciferol (Vitamin D) 1,000 units PO DAILY@13 [facility] Stop: 12/19/17 12:59 Last Admin: 06/22/17 13:15 Dose: 1,000 units Ceftriaxone Sodium/Dextrose (Rocephin 1 Gm (Premix)) 50 mls @ 100 mls/hr IV DAILY [facility] PRN Reason: Protocol Stop: 07/22/17 13:29 Last Admin: 06/22/17 15:16 Dose: 50 mls Methenamine Mandelate (Methenamine Corey) 1 gm PO BID@ [facility] PRN Reason: Protocol Stop: 07/22/17 18:59 Last Admin: 06/22/17 19:17 Dose: 1 gm Ondansetron HCl (Zofran) 4 mg IVP Q4HRS PRN PRN Reason: Nausea/Vomiting, Can't Take PO Stop: 12/18/17 23:16 Last Admin: 06/21/17 23:56 Dose: 4 mg Oseltamivir Phosphate (Tamiflu) 75 mg PO BIDMEAL [facility] Stop: 06/26/17 18:01 Last Admin: 06/22/17 19:17 Dose: 75 mg Oxycodone HCl (Oxycodone Ir) 15 mg PO TID@,,16,19 [facility] Stop: 07/02/17 15:59 Last Admin: 06/22/17 19:17 Dose: 15 mg Throat Lozenges (Cepacol Lozenge) 1 ea PO PRN PRN PRN Reason: Sore Throat Stop: 12/19/17 06:11 Last Admin: 06/22/17 06:21 Dose: 1 ea Discontinued Medications Acetaminophen (Tylenol) 1,000 mg PO ONCE ONE Stop: 06/21/17 23:57 Last Admin: 06/22/17 00:03 Dose: 1,000 mg Albuterol/Ipratropium (Duoneb) 3 ml IH EDNOW ONE Stop: 06/21/17 22:15 Last Admin: 06/21/17 22:23 Dose: 3 ml Furosemide (Lasix Injection) 40 mg IVP EDNOW ONE Stop: 06/21/17 23:07 Last Admin: 06/21/17 23:12 Dose: 40 mg Vancomycin/Sodium Chloride (Vancomycin 1 Gm (Premix)) 250 mls @ 250 mls/hr IV EDNOW ONE PRN Reason: Protocol Stop: 06/21/17 23:49 Last Admin: 06/21/17 23:57 Dose: 250 mls Piperacillin/Tazobactam/Dextrose (Zosyn (Premix)) 100 mls @ 200 mls/hr IV EDNOW ONE PRN Reason: Protocol Stop: 06/21/17 23:19 Last Admin: 06/21/17 23:21 Dose: 100 mls Sodium Chloride (Ns) 250 mls @ 0 mls/hr IV ONCE ONE PRN Reason: Wide Open Stop: 06/21/17 23:57 Last Admin: 06/22/17 00:09 Dose: 250 mls Piperacillin/Tazobactam/Dextrose (Zosyn 2.25 Gm (Premix)) 50 mls @ 100 mls/hr IV Q6HRS [facility] PRN Reason: Protocol Stop: 07/22/17 05:59 Last Admin: 06/22/17 05:49 Dose: 50 mls Sodium Chloride (Ns) 500 mls @ 500 mls/hr IV ONCE ONE Stop: 06/22/17 08:43 Last Admin: 06/22/17 09:00 Dose: 500 mls Departure - Departure Disposition: [facility] Acute Clinical Impression: Hypoxia, Generalized weakness CKD (chronic kidney disease) Qualifiers: Chronic kidney disease stage: unspecified stage Qualified Code(s): N18.9 - Chronic kidney disease, unspecified CHF (congestive heart failure) Qualifiers: Congestive heart failure type: unspecified congestive heart failure type Congestive heart failure chronicity: unspecified congestive heart failure chronicity Qualified Code(s): I50.9 - Heart failure, unspecified Pneumonia Qualifiers: Pneumonia type: due to unspecified organism Laterality: bilateral Lung location : lower lobe of lung Qualified Code(s): J18.9 - Pneumonia, unspecified organism Condition: Serious
[2017-06-21 22:28] LABS: BASE EXCESS -4.4 mEq/L (-2.5-2.5); BICARBONATE 20 mEq/L (22-26); MEASURED OXYGEN SATURATION 88 % (92-95); PCO2 37 mmHg (34-38); PO2 58 mmHg (65-75); TCO2 21 mEq/L (23-27)
[2017-06-21 22:36] LABS: INR 1.01 (0.83-1.16); PROTIME(PATIENT) 13.5 SEC (12.0-15.0)
[2017-06-21 22:37] LABS: APTT 30.1 SEC (23.0-38.0)
[2017-06-21 22:48] LABS: ALANINE AMINOTRANSFERASE 40 IU/L (21-72); ALBUMIN 3.9 g/dL (3.5-5.0); ALKALINE PHOSPHATASE 201 IU/L (38-126); ANION GAP 17 mEq/L (8-16); ASPARTATE AMINOTRANSFERASE 30 IU/L (17-59); BILIRUBIN,TOTAL 0.3 mg/dL (0.1-1.4); BILIRUBIN-CONJUGATED 0.3 mg/dL (0.0-0.5); CALCIUM 9.2 mg/dL (8.5-10.4); CARBON DIOXIDE 22 mEq/l (22-31); CHLORIDE 101 mEq/L (97-110); CREATININE 2.6 mg/dL (0.7-1.3); GLOMERULAR FILTRATION RATE 24; GLUCOSE 102 mg/dL (70-100); MAGNESIUM 2.1 mg/dL (1.6-2.3); POTASSIUM 4.8 mEq/L (3.5-5.2); SODIUM 140 mEq/L (134-144); TOTAL PROTEIN 7.7 g/dL (6.3-8.2)
[2017-06-21] MEDS ORDERED: VANCOMYCIN HCL/NORMAL SALINE 250 ML IV ONE (22:50)
[2017-06-21] MEDS ORDERED: PIPERACILLIN/TAZO 4.5 GM/DEX 100 ML IV ONE (22:50)
[2017-06-21 23:00] LABS: CREATINE KINASE-MB FRACTION 0.91 ng/mL (0.00-3.19); TROPONIN I 0.013 ng/mL (0.000-0.034)
[2017-06-21] MEDS ORDERED: FUROSEMIDE 40 MG/4 ML VIAL IVP ONE (23:06)
[2017-06-21] MEDS ORDERED: ONDANSETRON DISINTEGRATING 4 MG TAB PO PRN (23:17)
[2017-06-21] MEDS ORDERED: ALBUTEROL 3 ML DEYVIAL IH PRN (23:17)
[2017-06-21] MEDS ORDERED: NS 250 ML IV ONE (23:56)
[2017-06-21] MEDS: ONDANSETRON 4 MG/2 ML VIAL IVP PRN (23:56)
[2017-06-21] MEDS ORDERED: ACETAMINOPHEN 500 MG TAB PO ONE (23:56)
--- NOTE | 2017-06-22 01:25 | PDGENHP ---
History and Physical - Chief Complaint Fatigue, weakness - History of Present Illness 76 yo M w/ CAD s/p CABG in 2014, AF, and chronic pain presents with weakness and fatigue. Patient was recently admitted for atypical chest pain. PE was likely ruled out with negative LE ultrasounds and VQ scan stable from prior. He continued to display significant weakness and deconditioning during that admission but he refused sub-acute rehab placement so he was discharged home at his O2 baseline of 4 L/min O2. Since discharge his weakness has persisted, per his . On day of admission this worsened to the point he could not get up on his own. EMS was called an noted patient to be significantly hypoxic despite wearing his usual 4 L/min O2. Upon arrival in the ED patient was hypoxic, tachycardic, and febrile. CXR showed mild vascular congestion and lower lobe atelectasis vs. PNA. He was admitted for further care. History Information - Allergies/Home Medication List Allergies/Adverse Reactions: lorazepam Allergy (Severe, Verified 06/21/17 22:29) Other-Enter Comments coffee Allergy (Uncoded 06/21/17 22:29) pt doesnt like garlic Allergy (Uncoded 06/21/17 22:29) pt doesnt like green peppers Allergy (Uncoded 06/21/17 22:29) pt doesnt like onions Allergy (Uncoded 06/21/17 22:29) red peppers Allergy (Uncoded 06/21/17 22:29) Home Medications: Ascorbic Acid [Vitamin C 500 mg (*)] 1,000 mg PO BID@06/12/17 [Last Taken 06/11/17] Aspirin [Aspirin 81mg (*)] 81 mg PO DAILY@10 06/12/17 [Last Taken 06/11/17] Atorvastatin Calcium [Lipitor 40 mg (*)] 40 mg PO DAILY@16 06/12/17 [Last Taken 06/11/17] Cabergoline [Dostinex (*)] 0.25 mg PO SUWE@06/12/17 [Last Taken 06/08/17] Carvedilol [Coreg (*)] 3.125 mg PO BID@06/12/17 [Last Taken 06/11/17] Cholecalciferol Vit D3 [Vitamin D3 (*)] 1,000 units PO DAILY@13 06/12/17 [Last Taken 06/12/17] Cyanocobalamin [Vitamin B12 (*)] 1,000 mcg PO DAILY@06/12/17 [Last Taken ] Docusate Sodium [Colace 100 MG (*)] 200 mg PO DAILY@06/12/17 [Last Taken ] Herbals/Supplements -Info Only 1 ea PO DAILY 06/12/17 [Last Taken 06/11/17] Methenamine Corey [Hiprex 1 gm (*)] 1 gm PO BID@06/12/17 [Last Taken ] Multivitamins [Multivitamin (*)] 1 each PO DAILY@06/12/17 [Last Taken ] Tamsulosin HCl [Flomax 0.4 MG (*)] 0.8 mg PO DAILY@06/12/17 [Last Taken 06/11] oxyCODONE CR [Oxycontin] 15 mg PO BID@06/12/17 [Last Taken 06/11/17] oxyCODONE IR [Oxycodone Ir (*)] 15 mg PO TID@,,06/12/17 [Last Taken 06/11] I have personally reviewed and updated: family history, medical history - Past Medical History atrial fibrillation, coronary artery disease - Surgical History Reports: coronary bypass surgery - Family History Positive for: cancer - Social History Smoking Status: Former smoker Review of Systems Review of Systems: ROS: 10pt was reviewed & negative except for what was stated in HPI & below Physical Exam Physical Exam: Temp Pulse Resp BP Pulse Ox 38.6 C H 108 H 25 H 116/85 H 92 06/22/17 00:56 06/22/17 00:56 06/22/17 00:56 06/22/17 00:56 06/22/17 00:56 O2 (L/minute) 6 Constitutional: obese, uncomfortable Eyes: PERRL, EOMI Ears, Nose, Mouth, Throat: moist mucous membranes, no oral mucosal ulcers Cardiovascular: systolic murmur, tachycardia, edema (Trace b/l OSMAR) Peripheral Pulses: 0: dorsalis-pedis (L) Respiratory: reduced air movement, inspiratory crackles Gastrointestinal: normoactive bowel sounds, soft, non-tender abdomen Skin: warm, normal color Psychiatric: encephalopathic Lab Data & Imaging Review 06/21/17 22:10 06/21/17 22:10 WBC 7.96 10^3/uL (3.80-9.50) 06/21/17 22:10 RBC 4.29 10^6/uL (4.40-6.38) L 06/21/17 22:10 Hgb 13.3 g/dL (13.7-17.5) L 06/21/17 22:10 POC Hgb 13.6 gm/dL (13.7-17.5) L 06/21/17 22:07 Hct 40.3 % (40.0-51.0) 06/21/17 22:10 POC Hct 40 % (40-51) 06/21/17 22:07 MCV 93.9 fL (81.5-99.8) 06/21/17 22:10 MCH 31.0 pg (27.9-34.1) 06/21/17 22:10 MCHC 33.0 g/dL (32.4-36.7) 06/21/17 22:10 RDW 13.3 % (11.5-15.2) 06/21/17 22:10 Plt Count 145 10^3/uL (150-400) L 06/21/17 22:10 MPV 9.6 fL (8.7-11.7) 06/21/17 22:10 Neut % (Auto) 79.3 % (39.3-74.2) H 06/21/17 22:10 Lymph % (Auto) 9.9 % (15.0-45.0) L 06/21/17 22:10 [place] % (Auto) 8.0 % (4.5-13.0) 06/21/17 22:10 Eos % (Auto) 1.4 % (0.6-7.6) 06/21/17 22:10 Baso % (Auto) 0.6 % (0.3-1.7) 06/21/17 22:10 Nucleat RBC Rel Count 0.0 % (0.0-0.2) 06/21/17 22:10 Absolute Neuts (auto) 6.31 10^3/uL (1.70-6.50) 06/21/17 22:10 Absolute Lymphs (auto) 0.79 10^3/uL (1.00-3.00) L 06/21/17 22:10 Absolute Monos (auto) 0.64 10^3/uL (0.30-0.80) 06/21/17 22:10 Absolute Eos (auto) 0.11 10^3/uL (0.03-0.40) 06/21/17 22:10 Absolute Basos (auto) 0.05 10^3/uL (0.02-0.10) 06/21/17 22:10 Absolute Nucleated RBC 0.00 10^3/uL (0-0.01) 06/21/17 22:10 Immature Gran % 0.8 % (0.0-1.1) 06/21/17 22:10 Immature Gran # 0.06 10^3/uL (0.00-0.10) 06/21/17 22:10 PT 13.5 SEC (12.0-15.0) 06/21/17 22:10 INR 1.01 (0.83-1.16) 06/21/17 22:10 APTT 30.1 SEC (23.0-38.0) 06/21/17 22:10 Puncture Site RIGHT RADIAL 06/21/17 22:15 Patient Temperature 38.0 DEGREES 06/21/17 22:15 pCO2 37 mmHg (34-38) 06/21/17 22:15 pO2 58 mmHg (65-75) L 06/21/17 22:15 Total CO2 21 mEq/L (23-27) L 06/21/17 22:15 ABG pH 7.35 (7.35-7.45) 06/21/17 22:15 ABG HCO3 20 mEq/L (22-26) L 06/21/17 22:15 ABG O2 Saturation 88 % (92-95) L 06/21/17 22:15 ABG Base Excess -4.4 mEq/L (-2.5-2.5) L 06/21/17 22:15 VBG Lactic Acid 1.1 mmol/L (0.7-2.1) 06/21/17 22:10 Total O2 Concentration 6.0 LITERS 06/21/17 22:15 POC Sodium 138 mEq/L (134-144) 06/21/17 22:07 Sodium 140 mEq/L (134-144) 06/21/17 22:10 POC Potassium 4.5 mEq/L (3.3-5.0) 06/21/17 22:07 Potassium 4.8 mEq/L (3.5-5.2) 06/21/17 22:10 POC Chloride 104 mEq/L (97-110) 06/21/17 22:07 Chloride 101 mEq/L (97-110) 06/21/17 22:10 Carbon Dioxide 22 mEq/l (22-31) 06/21/17 22:10 Anion Gap 17 mEq/L (8-16) H 06/21/17 22:10 POC BUN 37 mg/dL (7-23) H 06/21/17 22:07 BUN 41 mg/dL (7-23) H 06/21/17 22:10 Creatinine 2.6 mg/dL (0.7-1.3) H 06/21/17 22:10 POC Creatinine 2.8 mg/dL (0.7-1.3) H 06/21/17 22:07 Estimated GFR 24 06/21/17 22:10 Glucose 102 mg/dL (70-100) H 06/21/17 22:10 POC Glucose 112 mg/dL (70-100) H 06/21/17 22:07 Calcium 9.2 mg/dL (8.5-10.4) 06/21/17 22:10 Magnesium 2.1 mg/dL (1.6-2.3) 06/21/17 22:10 Total Bilirubin 0.3 mg/dL (0.1-1.4) 06/21/17 22:10 Conjugated Bilirubin 0.3 mg/dL (0.0-0.5) 06/21/17 22:10 Unconjugated Bilirubin 0.0 mg/dL (0.0-1.1) 06/21/17 22:10 AST 30 IU/L (17-59) 06/21/17 22:10 ALT 40 IU/L (21-72) 06/21/17 22:10 Alkaline Phosphatase 201 IU/L (38-126) H 06/21/17 22:10 Creatine Kinase 22 IU/L (0-224) 06/21/17 22:10 CK-MB (CK-2) Fraction 0.91 ng/mL (0.00-3.19) 06/21/17 22:10 Troponin I 0.013 ng/mL (0.000-0.034) 06/21/17 22:10 NT-Pro-B Natriuret Pep 3510 pg/mL (0-450) H 06/21/17 22:10 Total Protein 7.7 g/dL (6.3-8.2) 06/21/17 22:10 Albumin 3.9 g/dL (3.5-5.0) 06/21/17 22:10 Lipase 138 IU/L (23-300) 06/21/17 22:10 Procalcitonin 0.27 ng/mL (0.02-0.10) H 06/21/17 22:10 Imaging Review: CTH without acute findings Visualized and Interpreted Chest x-ray results: Yes Chest X-Ray results: other (Basilar opacities: atelectasis vs. PNA) Visualized and Interpreted EKG results: Yes EKG Interpretation: Positive for: other (Sinus tachycardia) Assessment & Plan Assessment: 76 yo M w/ CAD s/p CABG in 2014, AF, and chronic pain presents with fever, hypoxia, and weakness likely 2/2 hospital acquired pneumonia in setting of recent admission. Plan: 1. Sepsis 2/2 presumed pneumonia - 3/4 SIRS criteria on admission with tachycardia, tachypnea, and fever. Bibasilar opacities on CXR likely represent pneumonia in conjunction w/ worsened hypoxia. Patient significantly nauseous on presentation with some vomiting so aspiration may also be playing a role. WBC only 7.9, lactate WNL, but PCT moderately elevated at 0.27. - HCAP + anaerobic coverage with Vanc/Zosyn noting recent hospitalization and concern for aspiration - Blood cultures and respiratory PCR panel ordered - Check UA to screen for additional source - IVF PRN 2. Acute on chronic hypoxic respiratory failure - Requiring 6 L/min O2 to maintain oxygenation currently; on 4 L/min O2 at baseline. This is likely related to above. There was some concern for CHF exacerbation in the ED but this seems less likely noting patient appears relatively euvolemic on exam and w / DIANNE that may represent pre-renal azotemia. Worked up for PE during recent admission but work-up was deemed negative after normal LE ultrasounds and stable VQ scan. I do not think repeat work-up is necessary at this time but may be worthwhile if status does not improve with treatment of infection. - Monitor, wean O2 as able - Albuterol PRN 3. DIANNE on CKD Stage III - SCr 2.6 on admission, b/l appears to ~2. This is presumably due to infection plus poor PO intake in setting of failure to thrive. Given Lasix 40 mg IV x1 in ED due to concern for CHF exacerbation. - Give small IVF bolus now and repeat PRN for heart rate - Monitor BMP 4. CAD s/p CABG in 2013 - On ASA, statin, BB as outpatient. Denies chest pain currently. Troponin negative on admission. 5. Chronic pain - Takes Oxycontin and Oxycodone as outpatient, this is likely contributing to his functional decline. 6. Hx AF - On BB as outpatient, no longer takes AC. In NSR on admission. 7. Hx of PE - Completed course of anticoagulation. Worked up for this during recent admission but work-up was deemed negative after normal LE ultrasounds and stable VQ scan. 8. Failure to thrive - Weakness and deconditioning have been an ongoing issue. He was recommended to d/c to [facility] during recent admission but declined. - Discussed this at length again with patient and , they will consider but had a very negative experience at [facility] in the past - PT/OT/CM evaluations Diet - Regular Code - Full Ppx - SCDs Dispo - Admit to SDU under observation status
[2017-06-22 03:33] LABS: COLOR PALE YELLOW; LEUKOCYTE ESTERASE,URINE 1+ (NEGATIVE); NITRITE,URINE NEGATIVE (NEGATIVE)
[2017-06-22 03:38] LABS: BACTERIA 1+ /hpf (NONE SEEN); MUCUS TRACE /lpf (NONE-1+); WBC,URINE 50-182 /hpf (0-3)
[2017-06-22] MEDS: ACETAMINOPHEN 325 MG TAB PO PRN ×3 (03:40→12:29)
[2017-06-22] MEDS ORDERED: PIPERACILLIN/TAZO 2.25 GM/DEX 50 ML IV SCH (06:00)
[2017-06-22 06:03] LABS: % IMMATURE GRANULYOCYTES 0.6 % (0.0-1.1); ABSOLUTE IMMATURE GRANULOCYTES 0.05 10^3/uL (0.00-0.10); ADD DIFF? NO; ADD MORPH? NO; ADD SCAN? NO; ATYPICAL LYMPHOCYTE FLAG 20 (0-99); FRAGMENT RBC FLAG 0 (0-99); HEMATOCRIT 34.2 % (40.0-51.0); HEMOGLOBIN 11.4 g/dL (13.7-17.5); LEFT SHIFT FLG 0 (0-99); LIPEMIA HEMOLYSIS FLAG 80 (0-99); MEAN CELL HEMOGLOBIN 31.2 pg (27.9-34.1); MEAN CELL HEMOGLOBIN CONCENTR. 33.3 g/dL (32.4-36.7); MEAN CELL VOLUME 93.7 fL (81.5-99.8); MEAN PLATELET VOLUME 9.5 fL (8.7-11.7); PLATELET CLUMPS FLAG 0 (0-99); PLATELET COUNT 116 10^3/uL (150-400); RED BLOOD CELL COUNT 3.65 10^6/uL (4.40-6.38); RED CELL DISTRIBUTION WIDTH 13.3 % (11.5-15.2)
[2017-06-22] MEDS ORDERED: CEPACOL LOZENGE PO PRN (06:12)
[2017-06-22 06:22] LABS: ANION GAP 13 mEq/L (8-16); CALCIUM 8.3 mg/dL (8.5-10.4); CARBON DIOXIDE 23 mEq/l (22-31); CHLORIDE 105 mEq/L (97-110); CREATININE 2.5 mg/dL (0.7-1.3); GLOMERULAR FILTRATION RATE 25; GLUCOSE 106 mg/dL (70-100); SODIUM 141 mEq/L (134-144)
[2017-06-22] MEDS ORDERED: NS 500 ML IV ONE (07:44)
[2017-06-22] MEDS ORDERED: ENOXAPARIN 30 MG/0.3 ML SYR SC SCH (09:00)
--- NOTE | 2017-06-22 10:35 | HOSPPROG ---
Hospitalist Progress Note Assessment/Plan: #Acute on chronic hypoxic rep failure: due to Flu A. No overt opacity on CXR and procalcitonin minimally elevated. Will hold abx, can readd if clinically declines #Influenza A: Tamiflu #Sepsis: suspect due to flu, but +UA. Culture pending. Will cont CTX until culture back #Tachycardia: due to sepsis, dehydration. Resolved #Acute on CKD: BL 2. Due to dehydration. Small amount IVFs today #Chronic pain: resume Oxycontin #Leg cramps: K+ okay, check mag #h/o PE: s/p anticoagulation. Recent V/Q indeterminate, but similar to prior and negative LE U/S #CAD: ASA, statin, BB #Atrial fibrillation: rate-controlled. Not on AC. NSR #Deconditioning: PT to evaluate #Diet: regular #DVT ppx: SCDs #Disp: warrants inpatient admission for ongoing IV abx, fluids and PT eval Subjective: fatigues, cramps in legs Objective: Vital Signs Temp Pulse Resp BP Pulse Ox 36.8 C 58 L 16 129/68 H 97 06/22/17 10:00 06/22/17 10:00 06/22/17 10:00 06/22/17 10:00 06/22/17 10:00 Microbiology 06/22/17 00:15 Respiratory Panel (PCR) - Final Nasal, Sinus - Swab Influenza Virus Type A H3 Laboratory Results 06/22/17 05:48 06/22/17 05:48 06/21/17 06/22/17 06/23/17 05:59 05:59 05:59 Intake Total 850 Output Total 1075 650 Balance -225 -650 PT 13.5 SEC (12.0-15.0) 06/21/17 22:10 INR 1.01 (0.83-1.16) 06/21/17 22:10 - Physical Exam Constitutional: other (very fatigued. Pale) Eyes: PERRL Ears, Nose, Mouth, Throat: moist mucous membranes Cardiovascular: regular rate and rhythym, systolic murmur, edema (trace pedal edema) Respiratory: no respiratory distress Gastrointestinal: normoactive bowel sounds Genitourinary: no bladder fullness Skin: warm Musculoskeletal: generalized weakness Neurologic: AAOx3, CN II-XII Intact Psychiatric: flat affect, other (very tired, but answering questions appropriately ) ICD10 Worksheet Patient Problems: Problems Problem Status Onset Acute renal failure syndrome Acute Shock, cardiogenic Acute Coronary artery arteriosclerosis Acute Left main coronary artery disease Acute Old inferior wall myocardial infarction Acute Unstable angina Acute Atrial fibrillation Acute Osteoarthritis of left hip Acute Urinary tract infection Acute Acute on chronic renal insufficiency Acute Elevated d-dimer Acute Chest pain Acute Anemia Acute Hypoxia Acute Generalized weakness Acute CKD (chronic kidney disease) Acute CHF (congestive heart failure) Acute Pneumonia Acute
[2017-06-22] MEDS: OSELTAMIVIR PHOSPHATE 75 MG CAP PO SCH ×2 (12:25→19:17)
[2017-06-22] MEDS ORDERED: NITROGLYCERIN 0.3 MG SL PRN (12:53)
[2017-06-22] MEDS ORDERED: NALDEMEDINE TOSYLATE 0.2 MG PO SCH (13:00)
[2017-06-22] MEDS ORDERED: NS 1,000 ML IV SCH (13:15)
[2017-06-22] MEDS: CHOLECALCIFEROL VIT D3 1,000 UNITS TAB PO SCH (13:15)
[2017-06-22] MEDS ORDERED: NITROGLYCERIN 0.4 MG BTL SL PRN (13:38)
--- NOTE | 2017-06-22 13:46 | PDMN ---
Medical Necessity Medical necessity: C/M review: est. > 2 MN LOS for eval and TX of acute on chronic hypoxic respiratory failure, influenza A, sepsis, acute on chronic chronic kidney disease, leg cramps, deconditioning requiring ongoing IV Ceftriazone, IV fluids, acute inpt PT, pulse oximetry, supplemental O2, comorbid chronic pain, CAD, atrial fibrillation, history of pulmonary embolism per H/P.
[2017-06-22] MEDS ORDERED: LR 1,000 ML IV SCH (14:00)
[2017-06-22] MEDS: oxyCODONE IR 15 MG TAB PO SCH ×2 (17:05→19:17)
[2017-06-22] MEDS: ATORVASTATIN CALCIUM 40 MG TAB PO SCH (17:05)
[2017-06-22] MEDS: ASCORBIC ACID 500 MG TAB PO SCH (19:17)
[2017-06-22] MEDS: METHENAMINE HIPP 1 GM TAB PO SCH (19:17)
[2017-06-22] MEDS: CARVEDILOL 6.25 MG TAB PO SCH (19:18)
[2017-06-22] MEDS: CABERGOLINE 0.5 MG TAB PO SCH (21:40)
[2017-06-22] MEDS: CYANO/VITAMIN B12 1000 MCG TAB PO SCH (21:40)
[2017-06-22] MEDS: oxyCODONE CR 15 MG TAB PO SCH (21:40)
[2017-06-23] MEDS: ACETAMINOPHEN 325 MG TAB PO PRN (00:31)
[2017-06-23 05:41] LABS: ANION GAP 13 mEq/L (8-16); CALCIUM 8.3 mg/dL (8.5-10.4); CARBON DIOXIDE 21 mEq/l (22-31); CHLORIDE 107 mEq/L (97-110); CREATININE 2.6 mg/dL (0.7-1.3); GLOMERULAR FILTRATION RATE 24; GLUCOSE 93 mg/dL (70-100); POTASSIUM 4.1 mEq/L (3.5-5.2); SODIUM 141 mEq/L (134-144)
[2017-06-23] MEDS: oxyCODONE IR 15 MG TAB PO SCH ×4 (06:00→18:32)
[2017-06-23] MEDS: METHENAMINE HIPP 1 GM TAB PO SCH ×3 (06:00→18:10)
[2017-06-23] MEDS: CARVEDILOL 6.25 MG TAB PO SCH ×2 (06:01→18:06)
[2017-06-23] MEDS: ASCORBIC ACID 500 MG TAB PO SCH ×2 (06:01→18:06)
[2017-06-23] MEDS: ONDANSETRON 4 MG/2 ML VIAL IVP PRN (06:41)
[2017-06-23] MEDS: oxyCODONE CR 15 MG TAB PO SCH ×2 (08:37→20:22)
[2017-06-23] MEDS: MULTIVITAMINS 1 EACH TAB PO SCH (08:37)
[2017-06-23] MEDS: OSELTAMIVIR PHOSPHATE 75 MG CAP PO SCH (08:37)
[2017-06-23] MEDS: ASPIRIN 81 MG CHEWABLE TAB PO SCH (08:37)
[2017-06-23] MEDS ORDERED: Herbals/Supplements -Info Only PO SCH (09:00)
[2017-06-23] MEDS ORDERED: OSELTAMIVIR PHOSPHATE 75 MG CAP PO SCH (11:05)
[2017-06-23] MEDS ORDERED: POLYETHYLENE GLYCOL 3350 17 GM PKT PO PRN (11:06)
[2017-06-23] MEDS ORDERED: MAGNESIUM HYDROXIDE 30 ML UDCUP PO PRN (11:06)
[2017-06-23] MEDS ORDERED: LACTULOSE 20 GM/30 ML UDCUP PO PRN (11:06)
[2017-06-23] MEDS ORDERED: BISACODYL 10 MG SUPP PR PRN (11:06)
--- NOTE | 2017-06-23 11:10 | HOSPPROG ---
Hospitalist Progress Note Assessment/Plan: # acute on chronic resp failure - most likely d/t flu; baseline 4L O2 # flu A - tamiflu # AoCKD (mild) - baseline SCr 2-2.5 - not improved today - check renal US and u-lytes - run 1/2 NS overnight # hx PE - off AC; had recent VQ which was indet but similar to previous; LE US neg # a-fib - NSR currently; not on AC # pyuria - no urinary sx; stop abx today; follow UCx # chronic pain on continuous narcotics # CAD: asa/statin/BB # debilitation - PT/OT # heparin SC Subjective: feels very weak; was able to take a few steps Objective: Vital Signs Temp Pulse Resp BP Pulse Ox 37.1 C 62 16 133/82 H 96 06/23/17 07:48 06/23/17 07:48 06/23/17 07:48 06/23/17 07:48 06/23/17 07:48 Laboratory Results 06/23/17 04:59 06/22/17 06/23/17 06/24/17 05:59 05:59 05:59 Intake Total 1650 Output Total 1960 Balance -310 PT 13.5 SEC (12.0-15.0) 06/21/17 22:10 INR 1.01 (0.83-1.16) 06/21/17 22:10 chart reviewed cxr personally reviewed CT head reviewed - Physical Exam Constitutional: other (weak, tired) Cardiovascular: regular rate and rhythym, no murmur, rub, or gallop Respiratory: no respiratory distress, no rales or rhonchi, clear to auscultation Gastrointestinal: normoactive bowel sounds, soft, non-tender abdomen, no palpable masses ICD10 Worksheet Patient Problems: Problems Problem Status Onset Acute renal failure syndrome Acute Shock, cardiogenic Acute Coronary artery arteriosclerosis Acute Left main coronary artery disease Acute Old inferior wall myocardial infarction Acute Unstable angina Acute Atrial fibrillation Acute Osteoarthritis of left hip Acute Urinary tract infection Acute Acute on chronic renal insufficiency Acute Elevated d-dimer Acute Chest pain Acute Anemia Acute Hypoxia Acute Generalized weakness Acute CKD (chronic kidney disease) Acute CHF (congestive heart failure) Acute Pneumonia Acute
[2017-06-23] MEDS ORDERED: 1/2 NS 1,000 ML IV SCH (11:15)
[2017-06-23] MEDS: CHOLECALCIFEROL VIT D3 1,000 UNITS TAB PO SCH (12:53)
[2017-06-23] MEDS ORDERED: NALDEMEDINE TOSYLATE 0.2 MG PO SCH (13:00)
[2017-06-23] MEDS: HEPARIN 5,000 UNIT/0.5 ML SYR SC SCH ×2 (14:40→22:13)
--- NOTE | 2017-06-23 16:14 | ASMTCASEMG ---
Living Arrangements What is your living Answers: With Spouse arrangement? Who do you live with? Type Of Residence What kind of residence do Answers: House you live in? Discharge Plan Comments Coordination Status Comments Notes: Pt is a 76 y/o man admitted for weakness, hypoxia and SOB. Therapies are recommending SNF. CM met w/ pt for dispo planning. Pt reports that he is not fond of the idea of going to rehab. CM will be back to speak w/ pt and tomorrow. Needs are TBD at this time. CM to follow. Plan: TBD Date Signed: 06/23/2017 04:14 PM Electronically Signed By:FITZ Castellon
[2017-06-23] MEDS: ATORVASTATIN CALCIUM 40 MG TAB PO SCH (17:04)
[2017-06-23] MEDS: OSELTAMIVIR 6 MG/ML UDSYR PO SCH (18:06)
[2017-06-23] MEDS: CYANO/VITAMIN B12 1000 MCG TAB PO SCH (22:13)
[2017-06-23] MEDS: SENNOSIDES/DOCUSATE SODIUM TAB PO SCH (22:16)
[2017-06-24] MEDS: METHENAMINE HIPP 1 GM TAB PO SCH ×2 (06:04→18:11)
[2017-06-24] MEDS: ASCORBIC ACID 500 MG TAB PO SCH ×2 (06:05→18:11)
[2017-06-24] MEDS: HEPARIN 5,000 UNIT/0.5 ML SYR SC SCH ×3 (06:05→22:25)
[2017-06-24] MEDS: CARVEDILOL 6.25 MG TAB PO SCH ×2 (06:06→18:12)
[2017-06-24] MEDS: oxyCODONE IR 15 MG TAB PO SCH ×4 (06:09→18:12)
[2017-06-24 06:33] LABS: ANION GAP 12 mEq/L (8-16); CALCIUM 8.5 mg/dL (8.5-10.4); CARBON DIOXIDE 24 mEq/l (22-31); CHLORIDE 104 mEq/L (97-110); CREATININE 2.4 mg/dL (0.7-1.3); GLOMERULAR FILTRATION RATE 26; GLUCOSE 89 mg/dL (70-100); POTASSIUM 3.8 mEq/L (3.5-5.2); SODIUM 140 mEq/L (134-144)
[2017-06-24] MEDS: OSELTAMIVIR 6 MG/ML UDSYR PO SCH ×2 (09:18→18:10)
[2017-06-24] MEDS: SENNOSIDES/DOCUSATE SODIUM TAB PO SCH ×2 (09:20→20:33)
[2017-06-24] MEDS: oxyCODONE CR 15 MG TAB PO SCH ×2 (09:23→21:08)
--- NOTE | 2017-06-24 10:54 | ASMTCMCOM ---
CM Note CM Note Notes: CM met w/ pt and for dispo planning. Pt has been to [facility] in the past and had a bad experience. Pt would like to get stronger at the hospital and possibly have supports at home instead of going to rehab. seem to want pt to go to rehab. would like CM to come back tomorrow to discuss dispo plan. Therapies continue to recommend SNF. CM to follow. Plan: TBD Date Signed: 06/24/2017 10:54 AM Electronically Signed By:FITZ Castellon
--- NOTE | 2017-06-24 11:18 | HOSPPROG ---
Hospitalist Progress Note Assessment/Plan: # acute on chronic resp failure - most likely d/t flu; close to baseline 4L O2 today # flu A - tamiflu # AoCKD (mild) - baseline SCr 2-2.5, likely at baseline today - off fluids today # hx PE - off AC; had recent VQ which was indet but similar to previous; LE US neg # a-fib - NSR currently; not on AC # pyuria - no urinary sx; stop abx today; UCx not convincing # chronic pain on continuous narcotics # AAA s/p repair # CAD: asa/statin/BB # debilitation - PT/OT # heparin SC Subjective: overall feels better today, but did not feel well overnight; c/o R knee pain Objective: Vital Signs Temp Pulse Resp BP Pulse Ox 36.6 C 60 14 136/86 H 93 06/24/17 09:04 06/24/17 09:04 06/24/17 09:04 06/24/17 09:04 06/24/17 09:04 Laboratory Results 06/24/17 05:30 06/23/17 06/24/17 06/25/17 05:59 05:59 05:59 Intake Total 1650 1200 Output Total 1960 1625 400 Balance -310 -425 -400 PT 13.5 SEC (12.0-15.0) 06/21/17 22:10 INR 1.01 (0.83-1.16) 06/21/17 22:10 US reviewed - Physical Exam Constitutional: no apparent distress, appears nourished Cardiovascular: regular rate and rhythym, no murmur, rub, or gallop Respiratory: no respiratory distress, no rales or rhonchi, clear to auscultation Gastrointestinal: normoactive bowel sounds, soft, non-tender abdomen, no palpable masses ICD10 Worksheet Patient Problems: Problems Problem Status Onset Acute renal failure syndrome Acute Shock, cardiogenic Acute Coronary artery arteriosclerosis Acute Left main coronary artery disease Acute Old inferior wall myocardial infarction Acute Unstable angina Acute Atrial fibrillation Acute Osteoarthritis of left hip Acute Urinary tract infection Acute Acute on chronic renal insufficiency Acute Elevated d-dimer Acute Chest pain Acute Anemia Acute Hypoxia Acute Generalized weakness Acute CKD (chronic kidney disease) Acute CHF (congestive heart failure) Acute Pneumonia Acute
[2017-06-24] MEDS: MULTIVITAMINS 1 EACH TAB PO SCH (11:32)
[2017-06-24] MEDS: ASPIRIN 81 MG CHEWABLE TAB PO SCH (11:32)
[2017-06-24] MEDS: ONDANSETRON 4 MG/2 ML VIAL IVP PRN (12:48)
[2017-06-24] MEDS: CHOLECALCIFEROL VIT D3 1,000 UNITS TAB PO SCH (12:52)
[2017-06-24] MEDS: ATORVASTATIN CALCIUM 40 MG TAB PO SCH (16:04)
[2017-06-24] MEDS: ACETAMINOPHEN 325 MG TAB PO PRN ×2 (18:09→22:24)
[2017-06-24] MEDS: CYANO/VITAMIN B12 1000 MCG TAB PO SCH (22:24)
[2017-06-25] MEDS: oxyCODONE IR 15 MG TAB PO SCH ×4 (06:01→17:32)
[2017-06-25] MEDS: METHENAMINE HIPP 1 GM TAB PO SCH ×2 (06:01→17:31)
[2017-06-25] MEDS: CARVEDILOL 6.25 MG TAB PO SCH ×2 (06:02→17:31)
[2017-06-25] MEDS: ASCORBIC ACID 500 MG TAB PO SCH ×2 (06:02→17:32)
[2017-06-25] MEDS: HEPARIN 5,000 UNIT/0.5 ML SYR SC SCH ×3 (06:03→23:16)
[2017-06-25 06:10] LABS: % IMMATURE GRANULYOCYTES 0.4 % (0.0-1.1); ABSOLUTE IMMATURE GRANULOCYTES 0.02 10^3/uL (0.00-0.10); ADD DIFF? NO; ADD MORPH? NO; ADD SCAN? NO; ATYPICAL LYMPHOCYTE FLAG 80 (0-99); FRAGMENT RBC FLAG 0 (0-99); HEMATOCRIT 34.8 % (40.0-51.0); HEMOGLOBIN 11.3 g/dL (13.7-17.5); LEFT SHIFT FLG 0 (0-99); LIPEMIA HEMOLYSIS FLAG 80 (0-99); MEAN CELL HEMOGLOBIN 30.4 pg (27.9-34.1); MEAN CELL HEMOGLOBIN CONCENTR. 32.5 g/dL (32.4-36.7); MEAN CELL VOLUME 93.5 fL (81.5-99.8); MEAN PLATELET VOLUME 9.5 fL (8.7-11.7); PLATELET CLUMPS FLAG 0 (0-99); PLATELET COUNT 126 10^3/uL (150-400); RED BLOOD CELL COUNT 3.72 10^6/uL (4.40-6.38); RED CELL DISTRIBUTION WIDTH 13.3 % (11.5-15.2)
[2017-06-25 06:20] LABS: ANION GAP 11 mEq/L (8-16); CALCIUM 8.7 mg/dL (8.5-10.4); CARBON DIOXIDE 25 mEq/l (22-31); CHLORIDE 105 mEq/L (97-110); CREATININE 2.4 mg/dL (0.7-1.3); GLOMERULAR FILTRATION RATE 26; GLUCOSE 85 mg/dL (70-100); SODIUM 141 mEq/L (134-144)
[2017-06-25] MEDS: ONDANSETRON 4 MG/2 ML VIAL IVP PRN ×2 (08:39→18:43)
[2017-06-25] MEDS: OSELTAMIVIR 6 MG/ML UDSYR PO SCH ×2 (08:52→17:33)
[2017-06-25] MEDS: ASPIRIN 81 MG CHEWABLE TAB PO SCH (08:52)
[2017-06-25] MEDS: MULTIVITAMINS 1 EACH TAB PO SCH (08:52)
[2017-06-25] MEDS: SENNOSIDES/DOCUSATE SODIUM TAB PO SCH ×2 (08:52→21:28)
[2017-06-25] MEDS: oxyCODONE CR 15 MG TAB PO SCH ×2 (10:28→20:30)
--- NOTE | 2017-06-25 12:20 | HOSPPROG ---
Hospitalist Progress Note Assessment/Plan: # acute on chronic resp failure - d/t flu; close to baseline 4L O2 today # flu A - tamiflu # AoCKD (mild) - baseline SCr 2-2.5, likely at baseline today - off fluids today # hx PE - off AC; had recent VQ which was indet but similar to previous; LE US neg # a-fib - NSR currently; not on AC # pyuria - no urinary sx; stop abx today; UCx not convincing # R knee OA - attempt PT/OT, knee sleeve, ice; consider ortho eval if not improving # chronic pain on continuous narcotics # AAA s/p repair # CAD: asa/statin/BB # debilitation - PT/OT # heparin SC # dispo - needs snf but he and are resistant to this; will have CM discuss again with them Subjective: ongoing knee pain limiting ambulation Objective: Vital Signs Temp Pulse Resp BP Pulse Ox 36.7 C 60 15 134/79 H 93 06/25/17 08:00 06/25/17 08:00 06/25/17 08:00 06/25/17 08:00 06/25/17 08:00 Microbiology 06/22/17 16:00 Urine Culture - Final Urine,Clean Catch Gram Neg Rods 2 Or More Types Laboratory Results 06/25/17 05:45 06/25/17 05:45 06/24/17 06/25/17 06/26/17 05:59 05:59 05:59 Intake Total 1200 800 Output Total 1625 1220 Balance -425 -420 PT 13.5 SEC (12.0-15.0) 06/21/17 22:10 INR 1.01 (0.83-1.16) 06/21/17 22:10 knee Xr reviewed - Time Spent With Patient Time Spent with Patient: greater than 25 minutes Time Spent with Patient: Greater than 25 minutes spent on this patients care, greater than 50% of time spent counseling, educating, and coordinating care regarding the above mentioned plan. - Physical Exam Constitutional: no apparent distress, appears nourished, other (moves very slowly) ICD10 Worksheet Patient Problems: Problems Problem Status Onset Acute renal failure syndrome Acute Shock, cardiogenic Acute Coronary artery arteriosclerosis Acute Left main coronary artery disease Acute Old inferior wall myocardial infarction Acute Unstable angina Acute Atrial fibrillation Acute Osteoarthritis of left hip Acute Urinary tract infection Acute Acute on chronic renal insufficiency Acute Elevated d-dimer Acute Chest pain Acute Anemia Acute Hypoxia Acute Generalized weakness Acute CKD (chronic kidney disease) Acute CHF (congestive heart failure) Acute Pneumonia Acute
[2017-06-25] MEDS: CHOLECALCIFEROL VIT D3 1,000 UNITS TAB PO SCH (13:57)
[2017-06-25] MEDS: ACETAMINOPHEN 325 MG TAB PO PRN (15:13)
[2017-06-25] MEDS: ATORVASTATIN CALCIUM 40 MG TAB PO SCH (16:18)
[2017-06-25] MEDS: BISMUTH SUBSALICYLATE 524 MG/30 ML UDL PO PRN (20:31)
[2017-06-25] MEDS: CYANO/VITAMIN B12 1000 MCG TAB PO SCH (23:13)
[2017-06-25] MEDS: CABERGOLINE 0.5 MG TAB PO SCH (23:27)
[2017-06-26 05:46] LABS: ANION GAP 11 mEq/L (8-16); CALCIUM 8.9 mg/dL (8.5-10.4); CARBON DIOXIDE 28 mEq/l (22-31); CHLORIDE 103 mEq/L (97-110); CREATININE 2.6 mg/dL (0.7-1.3); GLOMERULAR FILTRATION RATE 24; GLUCOSE 91 mg/dL (70-100); POTASSIUM 4.3 mEq/L (3.5-5.2); SODIUM 142 mEq/L (134-144)
[2017-06-26] MEDS: HEPARIN 5,000 UNIT/0.5 ML SYR SC SCH ×3 (08:15→22:29)
[2017-06-26] MEDS: CARVEDILOL 6.25 MG TAB PO SCH ×2 (08:16→18:43)
[2017-06-26] MEDS: ASCORBIC ACID 500 MG TAB PO SCH ×2 (08:16→18:44)
[2017-06-26] MEDS: METHENAMINE HIPP 1 GM TAB PO SCH ×2 (08:17→18:44)
[2017-06-26] MEDS: oxyCODONE IR 15 MG TAB PO SCH ×4 (08:17→18:43)
[2017-06-26] MEDS: SENNOSIDES/DOCUSATE SODIUM TAB PO SCH ×2 (08:21→22:31)
[2017-06-26] MEDS: ASPIRIN 81 MG CHEWABLE TAB PO SCH (08:26)
[2017-06-26] MEDS: MULTIVITAMINS 1 EACH TAB PO SCH (08:26)
[2017-06-26] MEDS: OSELTAMIVIR 6 MG/ML UDSYR PO SCH ×2 (08:26→17:03)
--- NOTE | 2017-06-26 10:57 | ASMTCMCOM ---
CM Note CM Note Notes: Spoke w/pt and Isabel re; dc poc. CM disscussed possible dc to SNF, pt and adamantly decline SNF. CM asked if they would like homecare and pt again stated he was "not interested, don't want it". Advised pt and CM can easily set rehab or homecare up for them, should they change their minds. feels pt will do better at home and accepts a homecare list but will engage PCP if they want homecare set up. DC Plan: Home w/ Date Signed: 06/26/2017 10:57 AM Electronically Signed By:Letha Ramirez RN
[2017-06-26] MEDS: oxyCODONE CR 15 MG TAB PO SCH ×2 (10:58→22:27)
[2017-06-26] MEDS: ACETAMINOPHEN 325 MG TAB PO PRN (10:58)
--- NOTE | 2017-06-26 11:29 | HOSPPROG ---
Hospitalist Progress Note Assessment/Plan: 76 yo M w CHRF, CKD admitted w worsening resp failure acute on chronic resp failure - d/t flu; close to baseline 4L O2 today abx have been dc'd flu A - tamiflu AoCKD (mild) - baseline SCr 2-2.5, likely at baseline today - off fluids today noted is mild R hydro no flank pain will have renal see hx PE - off AC; had recent VQ which was indet but similar to previous; LE US neg a-fib - NSR currently; not on AC pyuria - no urinary sx; stop abx today; UCx not convincing R knee OA - attempt PT/OT, knee sleeve, ice; consider ortho eval if not improving chronic pain on continuous narcotics AAA s/p repair CAD: asa/statin/BB debilitation - PT/OT heparin SC dispo - needs snf but he and are refusing Subjective: refusing snf. case d/w dr grider Objective: Vital Signs Temp Pulse Resp BP Pulse Ox 36.8 C 60 16 116/70 92 06/26/17 08:00 06/26/17 08:00 06/26/17 08:00 06/26/17 08:00 06/26/17 08:00 Laboratory Results 06/25/17 05:45 06/26/17 05:20 06/25/17 06/26/17 06/27/17 05:59 05:59 05:59 Intake Total 800 650 Output Total 1220 975 200 Balance -420 -325 -200 PT 13.5 SEC (12.0-15.0) 06/21/17 22:10 INR 1.01 (0.83-1.16) 06/21/17 22:10 - Physical Exam Constitutional: no apparent distress, appears nourished Eyes: PERRL, anicteric sclera Ears, Nose, Mouth, Throat: moist mucous membranes, hearing normal Cardiovascular: regular rate and rhythym, no murmur, rub, or gallop Respiratory: no respiratory distress, no rales or rhonchi Gastrointestinal: normoactive bowel sounds, soft, non-tender abdomen Genitourinary: no bladder fullness, No gleason in urethra Skin: warm, normal color Musculoskeletal: full muscle strength Neurologic: AAOx3 ICD10 Worksheet Patient Problems: Problems Problem Status Onset CHF (congestive heart failure) Acute CKD (chronic kidney disease) Acute Generalized weakness Acute Hypoxia Acute Pneumonia Acute Acute on chronic renal insufficiency Acute Acute renal failure syndrome Acute Anemia Acute Atrial fibrillation Acute Chest pain Acute Coronary artery arteriosclerosis Acute Elevated d-dimer Acute Left main coronary artery disease Acute Old inferior wall myocardial infarction Acute Osteoarthritis of left hip Acute Shock, cardiogenic Acute Unstable angina Acute Urinary tract infection Acute
[2017-06-26] MEDS: CHOLECALCIFEROL VIT D3 1,000 UNITS TAB PO SCH (13:15)
--- NOTE | 2017-06-26 15:48 | PDCONSULT ---
[employer] Sales Note: Renal Consult - Chief Complaint Fall - History of Present Illness The patient is a 76 y/o M with a known h/o CKD III, CAD s/p CABG, and COPD on home O2 who presented to the ED on Friday after a mechanical fall and was diagnosed with influenzae PNA. He has a baseline Cr of 2.[address] Arguelles as a outpatient. Upon admission he was reported septic and febrile, however BP's appear to be ok. Today the patient is feeling greatly improved and he is at his baseline O2 of 5L eating a cheeseburger with his . His Cr upon admission was 2.6, which has stayed stable the last 4 days. He reports a long history of prostate issues and sees Dr. Arellano of [facility]. He is on tamsulosin and has had to straight cath himself in the past. No h/o nephrolithiasis. He denies symptoms of infection however reports he "urinates all the time" but not much comes out. He is reluctant to get another gleason, because it has been needed for extended periods of time in the past. History Information - Allergies/Home Medication List Allergies/Adverse Reactions: lorazepam Allergy (Severe, Verified 06/21/17 22:29) Other-Enter Comments coffee Allergy (Uncoded 06/21/17 22:29) pt doesnt like garlic Allergy (Uncoded 06/21/17 22:29) pt doesnt like green peppers Allergy (Uncoded 06/21/17 22:29) pt doesnt like onions Allergy (Uncoded 06/21/17 22:29) red peppers Allergy (Uncoded 06/21/17 22:29) Home Medications: Ascorbic Acid [Vitamin C 500 mg (*)] 1,000 mg PO BID@,06/12/17 [Last Taken 06/11/17] Aspirin [Aspirin 81mg (*)] 81 mg PO DAILY@10 06/12/17 [Last Taken 06/11/17] Atorvastatin Calcium [Lipitor 40 mg (*)] 40 mg PO DAILY@16 06/12/17 [Last Taken 06/11/17] Cabergoline [Dostinex (*)] 0.25 mg PO SUWE@06/12/17 [Last Taken 06/08/17] Carvedilol [Coreg (*)] 3.125 mg PO BID@06/12/17 [Last Taken 06/11/17] Cholecalciferol Vit D3 [Vitamin D3 (*)] 1,000 units PO DAILY@06/12/17 [Last Taken 06/12/17] Cyanocobalamin [Vitamin B12 (*)] 1,000 mcg PO DAILY@06/12/17 [Last Taken ] Docusate Sodium [Colace 100 MG (*)] 200 mg PO DAILY@06/12/17 [Last Taken ] Herbals/Supplements -Info Only 1 ea PO DAILY 06/12/17 [Last Taken 06/11/17] Methenamine Corey [Hiprex 1 gm (*)] 1 gm PO BID@06/12/17 [Last Taken ] Multivitamins [Multivitamin (*)] 1 each PO DAILY@06/12/17 [Last Taken ] Tamsulosin HCl [Flomax 0.4 MG (*)] 0.8 mg PO DAILY@06/12/17 [Last Taken 06/11] oxyCODONE CR [Oxycontin] 15 mg PO BID@06/12/17 [Last Taken 06/11/17] oxyCODONE IR [Oxycodone Ir (*)] 15 mg PO TID@,,06/12/17 [Last Taken 06/11] I have personally reviewed and updated: family history, medical history - Past Medical History atrial fibrillation, coronary artery disease - Surgical History Reports: coronary bypass surgery - Family History Positive for: cancer - Social History Smoking Status: Former smoker Review of Systems Review of Systems: ROS: 10pt was reviewed & negative except for what was stated in HPI & below Physical Exam Physical Exam: Temp Pulse Resp BP Pulse Ox 36.9 C 64 14 112/75 94 06/26/17 12:00 06/26/17 12:00 06/26/17 12:00 06/26/17 12:00 06/26/17 12:00 Gen: A+Ox3, NAD HEENT: EOMI, no jaundice Neck: Supple CV: RRR, no murmurs or rubs RESP: Decreased b/s with mild wheezing, NC on ABD: Soft, NT, ND EXT: No edema, SCDs on SKIN: Pale, no rashes noted Neuro: Cooperative, non-focal Labs: WBC 5.32 10^3/uL (3.80-9.50) 06/25/17 05:45 RBC 3.72 10^6/uL (4.40-6.38) L 06/25/17 05:45 Hgb 11.3 g/dL (13.7-17.5) L 06/25/17 05:45 POC Hgb 13.6 gm/dL (13.7-17.5) L 06/21/17 22:07 Hct 34.8 % (40.0-51.0) L 06/25/17 05:45 POC Hct 40 % (40-51) 06/21/17 22:07 MCV 93.5 fL (81.5-99.8) 06/25/17 05:45 MCH 30.4 pg (27.9-34.1) 06/25/17 05:45 MCHC 32.5 g/dL (32.4-36.7) 06/25/17 05:45 RDW 13.3 % (11.5-15.2) 06/25/17 05:45 Plt Count 126 10^3/uL (150-400) L 06/25/17 05:45 MPV 9.5 fL (8.7-11.7) 06/25/17 05:45 Neut % (Auto) 62.2 % (39.3-74.2) 06/25/17 05:45 Lymph % (Auto) 25.2 % (15.0-45.0) 06/25/17 05:45 Harlan % (Auto) 9.0 % (4.5-13.0) 06/25/17 05:45 Eos % (Auto) 2.6 % (0.6-7.6) 06/25/17 05:45 Baso % (Auto) 0.6 % (0.3-1.7) 06/25/17 05:45 Nucleat RBC Rel Count 0.0 % (0.0-0.2) 06/25/17 05:45 Absolute Neuts (auto) 3.31 10^3/uL (1.70-6.50) 06/25/17 05:45 Absolute Lymphs (auto) 1.34 10^3/uL (1.00-3.00) 06/25/17 05:45 Absolute Monos (auto) 0.48 10^3/uL (0.30-0.80) 06/25/17 05:45 Absolute Eos (auto) 0.14 10^3/uL (0.03-0.40) 06/25/17 05:45 Absolute Basos (auto) 0.03 10^3/uL (0.02-0.10) 06/25/17 05:45 Absolute Nucleated RBC 0.00 10^3/uL (0-0.01) 06/25/17 05:45 Immature Gran % 0.4 % (0.0-1.1) 06/25/17 05:45 Immature Gran # 0.02 10^3/uL (0.00-0.10) 06/25/17 05:45 PT 13.5 SEC (12.0-15.0) 06/21/17 22:10 INR 1.01 (0.83-1.16) 06/21/17 22:10 APTT 30.1 SEC (23.0-38.0) 06/21/17 22:10 Puncture Site RIGHT RADIAL 06/21/17 22:15 Patient Temperature 38.0 DEGREES 06/21/17 22:15 pCO2 37 mmHg (34-38) 06/21/17 22:15 pO2 58 mmHg (65-75) L 06/21/17 22:15 Total CO2 21 mEq/L (23-27) L 06/21/17 22:15 ABG pH 7.35 (7.35-7.45) 06/21/17 22:15 ABG HCO3 20 mEq/L (22-26) L 06/21/17 22:15 ABG O2 Saturation 88 % (92-95) L 06/21/17 22:15 ABG Base Excess -4.4 mEq/L (-2.5-2.5) L 06/21/17 22:15 VBG Lactic Acid 1.1 mmol/L (0.7-2.1) 06/21/17 22:10 Total O2 Concentration 6.0 LITERS 06/21/17 22:15 POC Sodium 138 mEq/L (134-144) 06/21/17 22:07 Sodium 142 mEq/L (134-144) 06/26/17 05:20 POC Potassium 4.5 mEq/L (3.3-5.0) 06/21/17 22:07 Potassium 4.3 mEq/L (3.5-5.2) 06/26/17 05:20 POC Chloride 104 mEq/L (97-110) 06/21/17 22:07 Chloride 103 mEq/L (97-110) 06/26/17 05:20 Carbon Dioxide 28 mEq/l (22-31) 06/26/17 05:20 Anion Gap 11 mEq/L (8-16) 06/26/17 05:20 POC BUN 37 mg/dL (7-23) H 06/21/17 22:07 BUN 42 mg/dL (7-23) H 06/26/17 05:20 Creatinine 2.6 mg/dL (0.7-1.3) H 06/26/17 05:20 POC Creatinine 2.8 mg/dL (0.7-1.3) H 06/21/17 22:07 Estimated GFR 24 06/26/17 05:20 Glucose 91 mg/dL (70-100) 06/26/17 05:20 POC Glucose 112 mg/dL (70-100) H 06/21/17 22:07 Calcium 8.9 mg/dL (8.5-10.4) 06/26/17 05:20 Magnesium 2.1 mg/dL (1.6-2.3) 06/22/17 16:00 Total Bilirubin 0.3 mg/dL (0.1-1.4) 06/21/17 22:10 Conjugated Bilirubin 0.3 mg/dL (0.0-0.5) 06/21/17 22:10 Unconjugated Bilirubin 0.0 mg/dL (0.0-1.1) 06/21/17 22:10 AST 30 IU/L (17-59) 06/21/17 22:10 ALT 40 IU/L (21-72) 06/21/17 22:10 Alkaline Phosphatase 201 IU/L (38-126) H 06/21/17 22:10 Creatine Kinase 22 IU/L (0-224) 06/21/17 22:10 CK-MB (CK-2) Fraction 0.91 ng/mL (0.00-3.19) 06/21/17 22:10 Troponin I 0.013 ng/mL (0.000-0.034) 06/21/17 22:10 NT-Pro-B Natriuret Pep 3510 pg/mL (0-450) H 06/21/17 22:10 Total Protein 7.7 g/dL (6.3-8.2) 06/21/17 22:10 Albumin 3.9 g/dL (3.5-5.0) 06/21/17 22:10 Lipase 138 IU/L (23-300) 06/21/17 22:10 Procalcitonin 0.27 ng/mL (0.02-0.10) H 06/21/17 22:10 Urine Color PALE YELLOW 06/22/17 03:28 Urine Appearance HAZY 06/22/17 03:28 Urine pH 5.0 (5.0-7.5) 06/22/17 03:28 Ur Specific [place] 1.005 (1.002-1.030) 06/22/17 03:28 Urine Protein NEGATIVE (NEGATIVE) 06/22/17 03:28 Urine Ketones NEGATIVE (NEGATIVE) 06/22/17 03:28 Urine Blood NEGATIVE (NEGATIVE) 06/22/17 03:28 Urine Nitrate NEGATIVE (NEGATIVE) 06/22/17 03:28 Urine Bilirubin NEGATIVE (NEGATIVE) 06/22/17 03:28 Urine Urobilinogen NEGATIVE EU (0.2-1.0) 06/22/17 03:28 Ur Leukocyte Esterase 1+ (NEGATIVE) H 06/22/17 03:28 Urine RBC 1-3 /hpf (0-3) 06/22/17 03:28 Urine WBC 50-182 /hpf (0-3) H 06/22/17 03:28 Ur Epithelial Cells NONE SEEN /lpf (NONE-1+) 06/22/17 03:28 Urine Bacteria 1+ /hpf (NONE SEEN) H 06/22/17 03:28 Urine Mucus TRACE /lpf (NONE-1+) 06/22/17 03:28 Ur Random Creatinine 30.0 mg/dL 06/23/17 13:18 Ur Random Sodium 47 mEq/L (30-90) 06/23/17 13:18 Urine Glucose NEGATIVE (NEGATIVE) 06/22/17 03:28 Assessment/Plan: The patient is a 76 y/o M with a known h/o CKD Stage IIIb with baseline Cr of 2.0 who was admitted after a fall and found to have acute respiratory failure with influenza PNA now with DIANNE to 2.6mg/dL and new right hydronephrosis on renal US. Based on the patient's long clinical history of obstruction, elevated Vivi, as well as evidence of moderate urinary retention in the bladder noted on US, would recommend placing gleason and consulting urology to see if stent placement is necessary. There is no clinical evidence of UTI and the urine culture is <2000 colonies of mixed gram negative antonio. Would continue home meds with BP control, daily labs, and monitoring UO. No other major electrolyte abnormalities at this time. Will continue to follow, however patient hoping to be discharged tomorrow. Will arrange close outpatient f/u with Dr. Arguelles within 2 weeks. Please obtain outpatient f/u labs within 3-5 days. Consult appreciated, please contact for further questions.
[2017-06-26] MEDS: ATORVASTATIN CALCIUM 40 MG TAB PO SCH (16:34)
[2017-06-26] MEDS ORDERED: TAMSULOSIN HCL 0.4 MG CAP PO SCH (22:00)
[2017-06-26] MEDS: CYANO/VITAMIN B12 1000 MCG TAB PO SCH (22:27)
[2017-06-26] MEDS: BISMUTH SUBSALICYLATE 524 MG/30 ML UDL PO PRN (22:33)
[2017-06-27 05:32] LABS: ANION GAP 13 mEq/L (8-16); CALCIUM 8.7 mg/dL (8.5-10.4); CARBON DIOXIDE 26 mEq/l (22-31); CHLORIDE 102 mEq/L (97-110); CREATININE 2.6 mg/dL (0.7-1.3); GLOMERULAR FILTRATION RATE 24; GLUCOSE 89 mg/dL (70-100); POTASSIUM 3.9 mEq/L (3.5-5.2); SODIUM 141 mEq/L (134-144)
[2017-06-27] MEDS: HEPARIN 5,000 UNIT/0.5 ML SYR SC SCH ×2 (06:39→13:24)
[2017-06-27] MEDS: ASCORBIC ACID 500 MG TAB PO SCH (06:44)
[2017-06-27] MEDS: oxyCODONE IR 15 MG TAB PO SCH ×2 (06:44→13:24)
[2017-06-27] MEDS: CARVEDILOL 6.25 MG TAB PO SCH (06:44)
[2017-06-27] MEDS: METHENAMINE HIPP 1 GM TAB PO SCH (06:44)
[2017-06-27] MEDS: BISMUTH SUBSALICYLATE 524 MG/30 ML UDL PO PRN (07:53)
[2017-06-27] MEDS: ASPIRIN 81 MG CHEWABLE TAB PO SCH ×2 (07:54→07:56)
[2017-06-27] MEDS: SENNOSIDES/DOCUSATE SODIUM TAB PO SCH (07:56)
[2017-06-27] MEDS: MULTIVITAMINS 1 EACH TAB PO SCH (07:56)
--- NOTE | 2017-06-27 09:18 | SOAPPROG ---
JANY Progress Note Assessment/Plan: Assessment:Plan: ARF on CRF-baseline appears to be about 2.1 -creatinine stable but stuck in the mid 2's -electrolytes and volume status okay -he sees Dr. Rosenthal as an outpatient -likely has an element of ATN - issues being evaluated -we can follow his recovery as an outpatient with weekly RFP's, first lab on Friday -I gave him a standing order for this CKD-baseline as above -follow to see if he regains prior baseline -sees Dr. Arellano -likely will need outpatient follow up with him in the office Disposition-per hospitalists 06/27/17 09:15 Subjective: eager for discharge Objective: Vital Signs Temp Pulse Resp BP Pulse Ox 36.9 C 71 16 125/76 H 91 L 06/27/17 07:32 06/27/17 07:32 06/27/17 07:32 06/27/17 07:32 06/27/17 07:32 Laboratory Results 06/25/17 05:45 06/27/17 04:47 06/26/17 06/27/17 06/28/17 05:59 05:59 05:59 Intake Total 650 Output Total 975 450 175 Balance -325 -450 -175 PT 13.5 SEC (12.0-15.0) 06/21/17 22:10 INR 1.01 (0.83-1.16) 06/21/17 22:10 Physical Exam - Physical Exam General Appearance: WD/WN, alert, mild distress EENT: normal ENT inspection Neck: normal inspection Respiratory: crackles (fine, scattered crackles bilaterally) Cardiac/Chest: regular rate, rhythm, No diastolic murmur, No systolic murmur Abdomen: normal bowel sounds Back: Normal inspection Skin: normal color Extremities: No swelling Neuro/Psych: no motor/sensory deficits, alert, normal mood/affect ICD10 Worksheet Patient Problems: Problems Problem Status Onset CHF (congestive heart failure) Acute CKD (chronic kidney disease) Acute Generalized weakness Acute Hypoxia Acute Pneumonia Acute Acute on chronic renal insufficiency Acute Acute renal failure syndrome Acute Anemia Acute Atrial fibrillation Acute Chest pain Acute Coronary artery arteriosclerosis Acute Elevated d-dimer Acute Left main coronary artery disease Acute Old inferior wall myocardial infarction Acute Osteoarthritis of left hip Acute Shock, cardiogenic Acute Unstable angina Acute Urinary tract infection Acute
[2017-06-27] MEDS: oxyCODONE CR 15 MG TAB PO SCH (10:35)
[2017-06-27 11:25] VITALS: BP 122/74; PULSE 59; RESP 14; TEMP 98.1; O2SAT 92
--- NOTE | 2017-06-27 11:39 | HOSPPROG ---
Hospitalist Progress Note Assessment/Plan: 76 yo M w CHRF, CKD admitted w worsening resp failure acute on chronic resp failure - d/t flu; close to baseline 4L O2 today abx have been dc'd flu A - tamiflu AoCKD (mild) - baseline SCr 2-2.5, likely at baseline today - off fluids today noted is mild R hydro no stone mild right hydro (and some on L as well) likely from chronically incompletely entering bladder outpt and renal follow up in place hx PE - off AC; had recent VQ which was indet but similar to previous; LE US neg a-fib - NSR currently; not on AC pyuria - no urinary sx; stop abx today; UCx not convincing R knee OA - attempt PT/OT, knee sleeve, ice; consider ortho eval if not improving chronic pain on continuous narcotics AAA s/p repair CAD: asa/statin/BB debilitation - PT/OT heparin SC dispo -home today > 30 minutes see dc summary Subjective: CT scan w no stone Objective: Vital Signs Temp Pulse Resp BP Pulse Ox 36.7 C 59 L 14 122/74 H 92 06/27/17 11:24 06/27/17 11:24 06/27/17 11:24 06/27/17 11:24 06/27/17 11:24 Laboratory Results 06/25/17 05:45 06/27/17 04:47 06/26/17 06/27/17 06/28/17 05:59 05:59 05:59 Intake Total 650 Output Total 975 450 175 Balance -325 -450 -175 PT 13.5 SEC (12.0-15.0) 06/21/17 22:10 INR 1.01 (0.83-1.16) 06/21/17 22:10 - Physical Exam Constitutional: no apparent distress, appears nourished Eyes: PERRL, anicteric sclera Ears, Nose, Mouth, Throat: moist mucous membranes, hearing normal Cardiovascular: regular rate and rhythym, no murmur, rub, or gallop Respiratory: no respiratory distress, no rales or rhonchi Gastrointestinal: normoactive bowel sounds, soft, non-tender abdomen Genitourinary: no bladder fullness, No gleason in urethra Skin: warm, normal color Musculoskeletal: No full muscle strength Neurologic: AAOx3 ICD10 Worksheet Patient Problems: Problems Problem Status Onset CHF (congestive heart failure) Acute CKD (chronic kidney disease) Acute Generalized weakness Acute Hypoxia Acute Pneumonia Acute Acute on chronic renal insufficiency Acute Acute renal failure syndrome Acute Anemia Acute Atrial fibrillation Acute Chest pain Acute Coronary artery arteriosclerosis Acute Elevated d-dimer Acute Left main coronary artery disease Acute Old inferior wall myocardial infarction Acute Osteoarthritis of left hip Acute Shock, cardiogenic Acute Unstable angina Acute Urinary tract infection Acute
[2017-06-27] MEDS: ACETAMINOPHEN 325 MG TAB PO PRN (12:01)
--- NOTE | 2017-06-27 13:02 | GDS ---
[f rep st] DISCHARGE SUMMARY DISCHARGE DIAGNOSES: 1. Chronic kidney disease. Baseline creatinine of 2. 2. Acute kidney injury. Creatinine of 2.6, multifactorial. 3. Influenza A status post course of Tamiflu. 4. Hypoxemic respiratory failure, acute on chronic, now at baseline oxygen. 5. History of pulmonary embolism treated with anticoagulation, recent evaluation was deemed negative with a V/Q scan and negative ultrasounds. 6. History of atrial fibrillation on anticoagulation. 7. Pyuria. 8. Deconditioning. Please see admission history and physical by Dr. Jemal Plasencia. The patient admitted overnight on the with increased work of breathing. A chest x-ray at that time was relatively unremarkabl e with no infiltrate. The patient came back positive for influenza type A. he received Tamiflu with improvement. His creatinine was noted to be greater than baseline. Evaluation shows mild right hydro which is new. He was seen by Renal and Urology who felt this was probably due to chronically incompl ete bladder emptying. [facility] has been recommended, he has declined. 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 Dimitrios Rosenthal. Follow up [facility] Dr. Arellano, the urologist. /[id number]/MODL
[2017-06-27] MEDS: CHOLECALCIFEROL VIT D3 1,000 UNITS TAB PO SCH (13:25)
--- NOTE | 2017-06-27 18:09 | ASDISCHSUM ---
Discharge Information Plan Status:Home with No Needs Medically Cleared to Leave: Discharge Date:06/27/2017 03:40 PM CM D/C Disposition:Home, Routine, Self-Care ADT D/C Disposition:Home, Routine, Self-Care Projected Discharge Date:06/27/2017 03:40 PM Transportation at D/C: Discharge Delay Reason: Follow-Up Date:06/27/2017 03:40 PM Discharge Slot: Final Diagnosis: Placement Information Patient Contact Information Contact Name:ITALO DOLL Relationship: Address:[address] City:[facility] Phone: [facility]/Zip Code:[place] [address] Email: Financial Information Financial Class: Primary Plan Desc:MEDICARE INPATIENT Primary Plan Number:[id number] Secondary Plan Desc:SHAY INDEMNITY Secondary Plan Number:[id number] Assessment Information [facility] Initial CM Assessment Living Arrangements What is your living Answers: With Spouse arrangement? Who do you live with? Type Of Residence What kind of residence do Answers: House you live in? Discharge Plan Comments Coordination Status Comments Notes: Pt is a 76 y/o man admitted for weakness, hypoxia and SOB. Therapies are recommending SNF. CM met w/ pt for dispo planning. Pt reports that he is not fond of the idea of going to rehab. CM will be back to speak w/ pt and tomorrow. Needs are TBD at this time. CM to follow. Plan: TBD Date Signed: 06/23/2017 04:14 PM Electronically Signed By:FITZ Castellon [facility] CM Progress Note CM Note CM Note Notes: CM met w/ pt and for dispo planning. Pt has been to [facility] in the past and had a bad experience. Pt would like to get stronger at the hospital and possibly have supports at home instead of going to rehab. seem to want pt to go to rehab. would like CM to come back tomorrow to discuss dispo plan. Therapies continue to recommend SNF. CM to follow. Plan: TBD Date Signed: 06/24/2017 10:54 AM Electronically Signed By:FITZ Castellon [facility] Progress Note CM Note CM Note Notes: Spoke w/pt and Isabel re; dc poc. CM disscussed possible dc to SNF, pt and adamantly decline SNF. CM asked if they would like homecare and pt again stated he was "not interested, don't want it". Advised pt and CM can easily set rehab or homecare up for them, should they change their minds. feels pt will do better at home and accepts a homecare list but will engage PCP if they want homecare set up. DC Plan: Home w/ Date Signed: 06/26/2017 10:57 AM Electronically Signed By:Letha Ramirez RN Intervention Information Intervention Type:*IM-Signed Date of Service:06/27/2017 02:43 PM Patient Type:Inpatient Staff Member:Taylor Gunderson Hours: Discipline: Severity: Comment:
== END 2017-06-27 15:40 | disposition home or self-care (01) | DRG 193 ==
LOC: EDUNIT# → F2N 06-22 01:15 → OBSVTOIN 06-22 13:12 → F3E 06-22 17:32
PROVIDERS: ADMIT Student in an Organized Health Care Education/Training Program; ATTEND Internal Medicine
DX: J10.1 Influenza due to other identified influenza virus with other respiratory manifestations (principal); J96.21 Acute and chronic respiratory failure with hypoxia; R53.1 Weakness; N17.9 Acute kidney failure, unspecified; N18.3 Chronic kidney disease, stage 3 (moderate); N13.39 Other hydronephrosis; R33.8 Other retention of urine; R82.71 Bacteriuria; J44.9 Chronic obstructive pulmonary disease, unspecified; Z87.891 Personal history of nicotine dependence; Z99.81 Dependence on supplemental oxygen; I25.10 Atherosclerotic heart disease of native coronary artery without angina pectoris; Z95.1 Presence of aortocoronary bypass graft; I25.2 Old myocardial infarction; I10 Essential (primary) hypertension; I48.91 Unspecified atrial fibrillation; Z86.711 Personal history of pulmonary embolism; Z79.01 Long term (current) use of anticoagulants; E89.5 Postprocedural testicular hypofunction; Z96.642 Presence of left artificial hip joint
CPT/HCPCS: 82947-QW; 92523-GN; 96374; 97116-GP; 97162-GP; 97166-GO; 97530-GO; 97535-GO; G0378; G8978-GP-CK; G8979-GP-CJ; G8987-GO-CL; G8988-GO-CJ; G9168-GN-CH; G9169-GN-CH; G9170-GN-CH; J0696; J1940; J2405; J2543; J3370; J8515